=== PATIENT | female | born 1975 | race African-American/Black ===

== ENCOUNTER 2019-12-03 12:18 | Inpatient (IN) | payer OTHER ==
[~2019-12-03] VITALS: Ht 172.7 cm; Wt 80.7 kg
[2019-12-03] MEDS ORDERED: SODIUM CHLORIDE 0.9% 1,000 ML IV ONE ×3 (13:21→18:45)
[2019-12-03] MEDS ORDERED: metroNIDAZOLE 500MG/100ML 100 ML IV ONE (13:30)
[2019-12-03] MEDS ORDERED: methylPREDNISolone SOD SUCC 125 MG/2 ML VL IV ONE (13:30)
[2019-12-03] MEDS ORDERED: PROCHLORPERAZINE EDISYLATE 5 MG/ML 2ML VIAL IV ONE (13:30)
[2019-12-03] MEDS ORDERED: KETOROLAC TROMETH 30 MG/ML 1ML VIAL IV ONE (13:30)
[2019-12-03 14:09] LABS: Basophils # (auto) 0 10 ^3/uL (0-0.2); Basophils % (auto) 0.2 % (0.0-2.0); Eosinophils # (auto) 0 10 ^3/uL (0-0.8); Eosinophils % (auto) 0.1 % (0.0-7.0); Hematocrit 46.1 % (36.0-46.0); Hemoglobin 15.5 g/dL (12.2-16.2); Lymphocytes % (auto) 8.5 % (10.0-50.0); Mean Corpuscular Hemoglobin 29.5 pg (28.0-32.0); Mean Corpuscular Hgb Conc. 33.5 g/dL (32.0-36.0); Mean Corpuscular Volume 87.9 fL (80.0-100.0); Monocytes # (auto) 0.8 10 ^3/uL (0-1.3); Monocytes % (auto) 6.8 % (0.0-12.0); Neutrophils # (auto) 10.4 10 ^3/uL (1.6-8.6); Neutrophils % (auto) 84.4 % (37.0-80.0); Platelet Count (auto) 262 10^3/uL (140-450); Red Blood Cells 5.25 10^6/uL (4.0-5.20); Red Cell Distribution Width 12.5 % (11.8-14.3); White Blood Cell 12.4 10^3/uL (4.4-10.8)
[2019-12-03 14:24] LABS: INR 1.02 (0.9-1.15); Partial Thromboplastin Time 29.3 sec (23.0-31.2)
[2019-12-03 14:25] LABS: Albumin 3.1 g/dL (3.4-5.0); Anion Gap 15 (5-15); Blood Urea Nitrogen 13 mg/dL (7-18); Carbon Dioxide 17 mmol/L (21-32); Chloride 97 mmol/L (98-107); Magnesium 2.4 mg/dL (1.6-2.6); Potassium 3.9 mmol/L (3.5-5.1); Sodium 129 mmol/L (136-145)
[2019-12-03 14:30] LABS: Alanine Aminotransferase 21 U/L (13-56); Alkaline Phosphatase 85 U/L (45-117); Aspartate Aminotransferase 18 U/L (15-37); Bilirubin, Total 0.4 mg/dL (0.2-1.0); GFR African American 58 mL/min; GFR Non-African American 48 mL/min; Total Protein 7.9 g/dL (6.4-8.2)
[2019-12-03 14:35] LABS: Glucose 479 mg/dL (74-106)
[2019-12-03] MEDS ORDERED: DOXYCYCLINE 100MG/250ML 250 ML IV ONE (14:45)
[2019-12-03] MEDS ORDERED: SODIUM CHLORIDE 0.9% 1,000 ML IV SCH (17:17)
[2019-12-03] MEDS ORDERED: ACETAMINOPHEN 500 MG TAB PO PRN (17:30)
[2019-12-03] MEDS ORDERED: ACETAMINOPHEN 325 MG TAB PO PRN ×2 (17:30→18:15)
[2019-12-03] MEDS ORDERED: ALUM & MAG HYDROX-SIMETH LIQ(MAALOX) 30 ML PO PRN (17:30)
[2019-12-03] MEDS ORDERED: NITROGLYCERIN 0.4 MG SL TAB SL PRN (17:30)
[2019-12-03] MEDS ORDERED: HYDROcodone-ACET 5/325MG TAB PO PRN (17:30)
[2019-12-03] MEDS ORDERED: ONDANSETRON HCL 4 MG/2 ML VIAL IV PRN (17:30)
[2019-12-03] MEDS ORDERED: MORPHINE SULF INJ 2 MG/ML SYRINGE 1ML IV PRN ×2 (17:30)
[2019-12-03] MEDS ORDERED: LORazepam 0.5 MG TAB PO PRN (17:30)
[2019-12-03] MEDS ORDERED: INSULIN LANTUS (GLARGINE) 1 /0.01ml (100units/ml) SC ONE (18:45)
[2019-12-03] MEDS ORDERED: FUROSEMIDE 20 MG/2 ML VIAL IV ONE (19:00)
[2019-12-03] MEDS ORDERED: DEXTROSE (50%) 50ML SYRG IV PRN (19:00)
[2019-12-03] MEDS: DOXYCYCLINE 100MG/250ML 250 ML IV SCH (22:13)
[2019-12-03] MEDS: ATORVASTATIN 20 MG TAB PO SCH (22:14)
[2019-12-03] MEDS: FAMOTIDINE 20 MG TAB PO SCH (22:14)
[2019-12-04] MEDS: ACCU-CHEK COMFORT CURVE STRIP VI SCH ×5 (00:13→23:36)
[2019-12-04] MEDS: InsuLIN REG 1unit/0.01ml Soln (100units/ml) SC SCH ×5 (00:18→23:38)
[2019-12-04 03:05] VITALS: BP 123/76
[2019-12-04] MEDS: FUROSEMIDE 20 MG/2 ML VIAL IV SCH ×2 (06:05→18:03)
[2019-12-04 08:20] LABS: Basophils # (auto) 0 10 ^3/uL (0-0.2); Basophils % (auto) 0.2 % (0.0-2.0); Eosinophils # (auto) 0 10 ^3/uL (0-0.8); Hematocrit 42.4 % (36.0-46.0); Hemoglobin 14.6 g/dL (12.2-16.2); Lymphocytes # (auto) 0.9 10 ^3/uL (0.4-5.4); Lymphocytes % (auto) 7.7 % (10.0-50.0); Mean Corpuscular Hemoglobin 30.3 pg (28.0-32.0); Mean Corpuscular Hgb Conc. 34.5 g/dL (32.0-36.0); Mean Corpuscular Volume 87.9 fL (80.0-100.0); Monocytes # (auto) 0.7 10 ^3/uL (0-1.3); Neutrophils # (auto) 9.9 10 ^3/uL (1.6-8.6); Neutrophils % (auto) 86.1 % (37.0-80.0); Platelet Count (auto) 356 10^3/uL (140-450); Red Blood Cells 4.83 10^6/uL (4.0-5.20); Red Cell Distribution Width 12.8 % (11.8-14.3); White Blood Cell 11.5 10^3/uL (4.4-10.8)
[2019-12-04 08:33] LABS: Potassium 4.3 mmol/L (3.5-5.1)
[2019-12-04 08:41] LABS: BUN/Creatinine Ratio 14.9; Bilirubin, Total 0.4 mg/dL (0.2-1.0); Calcium 8.4 mg/dL (8.5-10.1); Total Protein 8.1 g/dL (6.4-8.2)
--- NOTE | 2019-12-04 08:55 | NUR ---
OPENING SHIFT NOTE: PATIENT ADMITTED TO COVID UNIT. ON ROOM AIR SATURATION 95% EVEN AND UNLABORED RESPIRATIONS NOTED. PATIENT A/OX4. 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 UPDATED ON PLAN OF CARE, ISOLATION PRECAUTIONS AND PROTOCOLS. PATIENT ASKING FOR A PEANUT BUTTER AND JELLY SANDWICH, INFORMED PATIENT OF CURRENT BLOOD SUGARS IN THE 400'S AND INSTRUCTED ON DIABETIC EDUCATION. CALL LIGHT PLACED WITHIN REACH, FALL PRECAUTIONS IN PLACE. WILL CONTINUE TO MONITOR.
[2019-12-04 09:00] VITALS: BP 147/94
[2019-12-04] MEDS ORDERED: LISI30TA4 PO (09:52)
[2019-12-04] MEDS ORDERED: ASPI-543 PO (09:52)
[2019-12-04] MEDS: FAMOTIDINE 20 MG TAB PO SCH ×2 (10:56→21:44)
[2019-12-04] MEDS: DOXYCYCLINE 100MG/250ML 250 ML IV SCH (10:56)
[2019-12-04] MEDS: ASPirin 81 mg TAB PO SCH (10:56)
[2019-12-04] MEDS: ZINC SULFATE 220mg CAP or TAB PO SCH (10:56)
[2019-12-04] MEDS: DexAMETHasone SOD PHOS 10MG/1ML VIAL INJ IV SCH (10:56)
[2019-12-04] MEDS: ASCORBIC ACID 1,000 MG TAB PO SCH (10:56)
[2019-12-04] MEDS: ENOXAPARIN SOD 40 MG/0.4 ML SYRINGE SC SCH (10:57)
[2019-12-04] MEDS: CHOLECALCIFEROL (VITD3) 2,000 UNIT CAP PO SCH (10:57)
--- NOTE | 2019-12-04 11:22 | NUR ---
PAGE MADE TO MD GARCIA PER BLOOD GLUCOSE AND INSULIN PROTOCOL.
[2019-12-04] MEDS: INSULIN LANTUS (GLARGINE) 1 /0.01ml (100units/ml) SC SCH ×2 (11:44→21:46)
[2019-12-04 12:24] VITALS: BP 147/94
[2019-12-04 12:59] VITALS: BP 159/99
[2019-12-04] MEDS ORDERED: POTASSIUM EFFERVESENT TAB 25 MEQ PO ONE (14:30)
[2019-12-04] MEDS ORDERED: levoFLOXacin 250 MG TAB PO ONE (14:30)
[2019-12-04] MEDS ORDERED: DEXTROSE (50%) 50ML SYRG IV PRN (14:30)
[2019-12-04] MEDS ORDERED: amLODIPine BESYLATE 5 MG TAB PO ONE (14:45)
[2019-12-04 17:09] VITALS: BP 148/94
--- NOTE | 2019-12-04 18:04 | NUR ---
MD SOTO PAGED: CALLED BACK REGARDING BS [phone]. 1 TIME ORDER FOR LANTUS GIVEN.
[2019-12-04] MEDS ORDERED: INSULIN LANTUS (GLARGINE) 1 /0.01ml (100units/ml) SC ONE (18:15)
--- NOTE | 2019-12-04 18:54 | NUR ---
CARE ENDORSED TO NOC RN.
--- NOTE | 2019-12-04 20:00 | NUR ---
Opening Shift Note Assumed care of patient. Awake, alert and oriented x4. No S/S of distress/SOB or pain. Pt on room air with even and unlabored respirations. Instructed on POC and to call for assist PRN. Bed locked, in lowest position, call light within reach, side rails up x2. Will continue to monitor for changes Q1hr and PRN.
[2019-12-04] MEDS: ATORVASTATIN 20 MG TAB PO SCH (21:44)
--- NOTE | 2019-12-04 22:00 | NUR ---
Hospitalist paged Re: BS [phone], Pt asking for a sleeping pill
--- NOTE | 2019-12-04 22:20 | NUR ---
Call back from hospitalist Told to follow protocol for BS. New orders received for sleeping pill.
[2019-12-04 22:23] VITALS: BP 148/98
[2019-12-04] MEDS: BUDESONIDE (INHALATION) 180 MCG IH IN SCH (22:25)
[2019-12-04] MEDS: ALBUTEROL SULF HFA 90MCG INH 200DOSE IN SCH (22:25)
[2019-12-04] MEDS ORDERED: TEMAZEPAM 15 MG CAP PO ONE (22:30)
[2019-12-05 05:21] VITALS: BP 153/94
[2019-12-05] MEDS: ACCU-CHEK COMFORT CURVE STRIP VI SCH ×2 (06:04→12:07)
[2019-12-05] MEDS: FUROSEMIDE 20 MG/2 ML VIAL IV SCH (06:04)
[2019-12-05] MEDS: InsuLIN REG 1unit/0.01ml Soln (100units/ml) SC SCH ×2 (06:09→12:08)
[2019-12-05] MEDS: BUDESONIDE (INHALATION) 180 MCG IH IN SCH (06:50)
[2019-12-05] MEDS: ALBUTEROL SULF HFA 90MCG INH 200DOSE IN SCH ×2 (06:50→14:08)
[2019-12-05 07:26] LABS: Basophils # (auto) 0.1 10 ^3/uL (0-0.2); Basophils % (auto) 0.3 % (0.0-2.0); Eosinophils # (auto) 0 10 ^3/uL (0-0.8); Hematocrit 44.4 % (36.0-46.0); Mean Corpuscular Hemoglobin 29.3 pg (28.0-32.0); Mean Corpuscular Hgb Conc. 33.9 g/dL (32.0-36.0); Mean Corpuscular Volume 86.6 fL (80.0-100.0); Monocytes # (auto) 1.1 10 ^3/uL (0-1.3); Monocytes % (auto) 5.5 % (0.0-12.0); Neutrophils # (auto) 17.1 10 ^3/uL (1.6-8.6); Neutrophils % (auto) 89.2 % (37.0-80.0); Platelet Count (auto) 405 10^3/uL (140-450); Red Blood Cells 5.13 10^6/uL (4.0-5.20); Red Cell Distribution Width 12.8 % (11.8-14.3); White Blood Cell 19.2 10^3/uL (4.4-10.8)
[2019-12-05 07:39] LABS: Calcium 9.3 mg/dL (8.5-10.1); Potassium 3.9 mmol/L (3.5-5.1)
[2019-12-05 07:43] LABS: BUN/Creatinine Ratio 17.9
[2019-12-05 08:51] VITALS: BP 141/94
[2019-12-05] MEDS ORDERED: amLODIPine BESYLATE 5 MG TAB PO SCH (10:00)
[2019-12-05] MEDS ORDERED: POTASSIUM EFFERVESENT TAB 25 MEQ PO SCH (10:00)
[2019-12-05] MEDS ORDERED: levoFLOXacin 250 MG TAB PO SCH (10:00)
[2019-12-05] MEDS: DexAMETHasone SOD PHOS 10MG/1ML VIAL INJ IV SCH (10:37)
[2019-12-05] MEDS: ZINC SULFATE 220mg CAP or TAB PO SCH (10:37)
[2019-12-05] MEDS: ASPirin 81 mg TAB PO SCH (10:37)
[2019-12-05] MEDS: CHOLECALCIFEROL (VITD3) 2,000 UNIT CAP PO SCH (10:38)
[2019-12-05] MEDS: ASCORBIC ACID 1,000 MG TAB PO SCH (10:38)
[2019-12-05] MEDS: FAMOTIDINE 20 MG TAB PO SCH (10:38)
[2019-12-05] MEDS: ENOXAPARIN SOD 40 MG/0.4 ML SYRINGE SC SCH (10:39)
[2019-12-05] MEDS: INSULIN LANTUS (GLARGINE) 1 /0.01ml (100units/ml) SC SCH (10:59)
[2019-12-05 12:51] VITALS: BP 148/98
[2019-12-05] MEDS ORDERED: LEVO750T8 PO (13:25)
[2019-12-05] MEDS ORDERED: DEX4T PO (13:26)
[2019-12-05] MEDS ORDERED: PANT40TA2 PO (13:28)
[2019-12-05] MEDS ORDERED: ALBUAER3 IN (13:28)
[2019-12-05] MEDS ORDERED: ASCO10003 PO (13:28)
[2019-12-05] MEDS ORDERED: AML5T PO (13:28)
[2019-12-05] MEDS ORDERED: ATOR20TA50 PO (13:28)
[2019-12-05] MEDS ORDERED: CHOL1CAP47 PO (13:28)
[2019-12-05 15:38] VITALS: BP 148/98
[2019-12-05 16:51] VITALS: BP 143/97
== END 2019-12-05 19:15 | disposition home or self-care (01) | DRG 871 ==
LOC: ER 12:18 → TELE 12:19 → TELE-E-ADS 12-04 08:54
PROVIDERS: ADMIT Hospitalist; ATTEND Internal Medicine Nephrology
DX: A41.89 Other specified sepsis (principal); J96.01 Acute respiratory failure with hypoxia; J12.89 Other viral pneumonia; U07.1 COVID-19; E44.0 Moderate protein-calorie malnutrition; N17.9 Acute kidney failure, unspecified; E11.22 Type 2 diabetes mellitus with diabetic chronic kidney disease; E11.65 Type 2 diabetes mellitus with hyperglycemia; K21.9 Gastro-esophageal reflux disease without esophagitis; E66.9 Obesity, unspecified; E78.5 Hyperlipidemia, unspecified; I12.9 Hypertensive chronic kidney disease with stage 1 through stage 4 chronic kidney disease, or unspecified chronic kidney disease; K29.70 Gastritis, unspecified, without bleeding; K52.9 Noninfective gastroenteritis and colitis, unspecified; R65.20 Severe sepsis without septic shock; N18.3 Chronic kidney disease, stage 3 (moderate); Z68.27 Body mass index [BMI] 27.0-27.9, adult
CPT/HCPCS: 36415; 71045; 80048; 80053; 82962; 83036; 83735; 83880; 84484; 85025; 85610; 85730; 87040; 87426; 94640; G0378; J1100; J1815; J1885; J2405; J3490

== ENCOUNTER 2022-08-30 03:09 | Inpatient (IN) | payer OTHER ==
[~2022-08-30] VITALS: Ht 165.1 cm; Wt 87.9 kg
[~2022-08-30 03:09] MED LIST: ALBUAER3 IN; AML5T PO; ASCO10003 PO; ASPI-543 PO; ATOR20TA50 PO; CHOL1CAP47 PO; DEX4T PO; LEVO750T8 PO; LISI30TA4 PO; PANT40TA2 PO
[2022-08-30] MEDS ORDERED: ACETAMINOPHEN 325 MG TAB PO ONE (04:45)
[2022-08-30 04:56] LABS: Basophils # (auto) 0 10 ^3/uL (0-0.2); Basophils % (auto) 0.1 % (0.0-2.0); Eosinophils # (auto) 0 10 ^3/uL (0-0.8); Eosinophils % (auto) 0.1 % (0.0-7.0); Hematocrit 43.3 % (36.0-46.0); Hemoglobin 14.2 g/dL (12.2-16.2); Lymphocytes # (auto) 1.1 10 ^3/uL (0.4-5.4); Lymphocytes % (auto) 5.6 % (10.0-50.0); Mean Corpuscular Hemoglobin 30.4 pg (28.0-32.0); Mean Corpuscular Hgb Conc. 32.8 g/dL (32.0-36.0); Mean Corpuscular Volume 92.9 fL (80.0-100.0); Monocytes # (auto) 1.3 10 ^3/uL (0-1.3); Monocytes % (auto) 6.5 % (0.0-12.0); Neutrophils # (auto) 17.6 10 ^3/uL (1.6-8.6); Neutrophils % (auto) 87.7 % (37.0-80.0); Red Blood Cells 4.65 10^6/uL (4.0-5.20); White Blood Cell 20.1 10^3/uL (4.4-10.8)
[2022-08-30 05:10] LABS: Albumin 3.3 g/dL (3.4-5.0); BUN/Creatinine Ratio 9.8 (10.0-20.0); Calcium 9.2 mg/dL (8.5-10.1); Potassium 3.3 mmol/L (3.5-5.1)
[2022-08-30 05:13] LABS: Bilirubin, Total 0.5 mg/dL (0.2-1.0); Total Protein 7.5 g/dL (6.4-8.2)
[2022-08-30] MEDS ORDERED: levoFLOXacin 750MG 150 ML IV ONE (07:00)
[2022-08-30] MEDS ORDERED: IBUPROFEN 600 MG TAB PO ONE (08:00)
[2022-08-30] MEDS ORDERED: SODIUM CHLORIDE 0.9% 1,000 ML IV ONE (08:00)
[2022-08-30] MEDS ORDERED: POTASSIUM CHL 20 Meq TABLET PO ONE (09:45)
[2022-08-30] MEDS ORDERED: LACTATED RINGER'S 1,000 ML IV ONE (09:45)
[2022-08-30] MEDS ORDERED: DOCUSATE SOD 100 MG CAP PO PRN (10:00)
[2022-08-30] MEDS ORDERED: ACETAMINOPHEN 325 MG TAB PO PRN (10:00)
[2022-08-30] MEDS: ENOXAPARIN SOD 40 MG/0.4 ML SYRINGE SC SCH (10:19)
[2022-08-30] MEDS ORDERED: IOHEXOL 300 MG/ML 100ML BOTTLE IJ ONE (10:56)
[2022-08-30] MEDS ORDERED: GABA300C10 PO (18:07)
[2022-08-30] MEDS: HYDROcodone-ACET 5/325MG TAB PO PRN (19:59)
[2022-08-30 22:00] VITALS: BP 133/80
[2022-08-30] MEDS: MORPHINE SULFATE INJ 2 MG/ml SYRG IV PRN (22:02)
[2022-08-31] MEDS: MORPHINE SULFATE INJ 2 MG/ml SYRG IV PRN ×5 (02:25→18:44)
[2022-08-31] MEDS: ONDANSETRON HCL 4 MG/2 ML VIAL IV PRN ×5 (02:25→18:43)
[2022-08-31 05:00] VITALS: BP 132/81
[2022-08-31 07:12] LABS: Urine Bacteria FEW /hpf (None Seen); Urine Blood Negative /uL (Negative); Urine Specific Gravity 1.027 (1.001-1.035); Urine WBC 1 /hpf (0 - 5)
[2022-08-31 08:00] VITALS: BP 145/89
[2022-08-31] MEDS: ENOXAPARIN SOD 40 MG/0.4 ML SYRINGE SC SCH (08:50)
[2022-08-31] MEDS: AZITHROMYCIN 500MG/ 250ML 250 ML IV SCH (08:50)
[2022-08-31 09:00] VITALS: BP 145/89
[2022-08-31] MEDS: D5W/SOD CHL 0.45%/KCL 20MEQ 1,000 ML IV SCH ×2 (12:14→21:35)
[2022-08-31 12:20] LABS: Basophils # (auto) 0 10 ^3/uL (0-0.2); Basophils % (auto) 0.2 % (0.0-2.0); Eosinophils # (auto) 0 10 ^3/uL (0-0.8); Hematocrit 39.1 % (36.0-46.0); Hemoglobin 12.9 g/dL (12.2-16.2); Lymphocytes # (auto) 1.1 10 ^3/uL (0.4-5.4); Lymphocytes % (auto) 5.2 % (10.0-50.0); Mean Corpuscular Hemoglobin 29.7 pg (28.0-32.0); Mean Corpuscular Volume 89.9 fL (80.0-100.0); Monocytes # (auto) 1.4 10 ^3/uL (0-1.3); Monocytes % (auto) 6.3 % (0.0-12.0); Neutrophils # (auto) 19.4 10 ^3/uL (1.6-8.6); Neutrophils % (auto) 88.3 % (37.0-80.0); Red Blood Cells 4.35 10^6/uL (4.0-5.20); Red Cell Distribution Width 12.8 % (11.8-14.3)
[2022-08-31 13:00] VITALS: BP 128/83
[2022-08-31] MEDS: GABAPENTIN 300 MG CAP PO SCH ×2 (14:00→21:34)
[2022-08-31 14:21] LABS: Anion Gap 8 (5-15); BUN/Creatinine Ratio 8.5 (10.0-20.0); Blood Urea Nitrogen 8 mg/dL (7-18); Calcium 8.5 mg/dL (8.5-10.1); Carbon Dioxide 16 mmol/L (21-32); Chloride 108 mmol/L (98-107); GFR African American 83 mL/min; GFR Non-African American 68 mL/min; Glucose 323 mg/dL (74-106); Potassium 4.5 mmol/L (3.5-5.1); Sodium 132 mmol/L (136-145)
[2022-08-31 17:00] VITALS: BP 143/97
[2022-08-31] MEDS: HYDROcodone-ACET 5/325MG TAB PO PRN (20:07)
[2022-08-31 22:00] VITALS: BP 154/86
[2022-09-01] MEDS: MORPHINE SULFATE INJ 2 MG/ml SYRG IV PRN ×2 (01:34→15:12)
[2022-09-01] MEDS: ONDANSETRON HCL 4 MG/2 ML VIAL IV PRN ×2 (01:35→15:11)
[2022-09-01 05:00] VITALS: BP 157/92
[2022-09-01] MEDS: D5W/SOD CHL 0.45%/KCL 20MEQ 1,000 ML IV SCH ×2 (05:04→11:55)
[2022-09-01] MEDS: GABAPENTIN 300 MG CAP PO SCH ×3 (05:04→21:19)
[2022-09-01] MEDS: HYDROcodone-ACET 5/325MG TAB PO PRN ×3 (05:04→20:00)
[2022-09-01 06:28] LABS: Potassium 4.4 mmol/L (3.5-5.1)
[2022-09-01 06:36] LABS: Albumin 2.9 g/dL (3.4-5.0); BUN/Creatinine Ratio 7.3 (10.0-20.0); Bilirubin, Total 0.3 mg/dL (0.2-1.0); Calcium 8.5 mg/dL (8.5-10.1); Total Protein 7.3 g/dL (6.4-8.2)
[2022-09-01 08:00] VITALS: BP 131/79
[2022-09-01 09:00] VITALS: BP 131/79
[2022-09-01] MEDS ORDERED: DEXTROSE (50%) 50ML SYRG IV PRN (09:30)
[2022-09-01] MEDS: AZITHROMYCIN 500MG/ 250ML 250 ML IV SCH (09:33)
[2022-09-01] MEDS: ENOXAPARIN SOD 40 MG/0.4 ML SYRINGE SC SCH (09:34)
[2022-09-01] MEDS: amLODIPine BESYLATE 5 MG TAB PO SCH (09:35)
[2022-09-01] MEDS: ACCU-CHEK COMFORT CURVE STRIP VI SCH ×3 (11:32→21:40)
[2022-09-01] MEDS: InsuLIN REG 1unit/0.01ml Soln (100units/ml) SC SCH ×2 (11:35→17:06)
[2022-09-01 13:00] VITALS: BP 141/95
[2022-09-01 13:04] LABS: Basophils # (auto) 0.2 10 ^3/uL (0-0.2); Basophils % (auto) 1.1 % (0.0-2.0); Eosinophils # (auto) 0.1 10 ^3/uL (0-0.8); Eosinophils % (auto) 0.7 % (0.0-7.0); Hematocrit 38.2 % (36.0-46.0); Hemoglobin 12.7 g/dL (12.2-16.2); Lymphocytes # (auto) 1.6 10 ^3/uL (0.4-5.4); Lymphocytes % (auto) 10.8 % (10.0-50.0); Mean Corpuscular Hemoglobin 30.2 pg (28.0-32.0); Mean Corpuscular Hgb Conc. 33.3 g/dL (32.0-36.0); Mean Corpuscular Volume 90.7 fL (80.0-100.0); Monocytes % (auto) 6.9 % (0.0-12.0); Neutrophils # (auto) 11.8 10 ^3/uL (1.6-8.6); Neutrophils % (auto) 80.5 % (37.0-80.0); Red Blood Cells 4.22 10^6/uL (4.0-5.20); Red Cell Distribution Width 12.9 % (11.8-14.3); White Blood Cell 14.7 10^3/uL (4.4-10.8)
[2022-09-01] MEDS: SODIUM CHLORIDE 0.9% 1,000 ML IV SCH (15:25)
[2022-09-01 17:00] VITALS: BP 126/58
[2022-09-01 22:00] VITALS: BP 149/90
[2022-09-01] MEDS ORDERED: InsuLIN REG 1unit/0.01ml Soln (100units/ml) SC SCH (22:00)
[2022-09-02] MEDS: HYDROcodone-ACET 5/325MG TAB PO PRN ×2 (04:58→10:52)
[2022-09-02] MEDS: GABAPENTIN 300 MG CAP PO SCH ×2 (04:58→15:02)
[2022-09-02 05:00] VITALS: BP 119/91
[2022-09-02] MEDS: SODIUM CHLORIDE 0.9% 1,000 ML IV SCH (05:01)
[2022-09-02 05:49] LABS: Basophils # (auto) 0.1 10 ^3/uL (0-0.2); Basophils % (auto) 0.7 % (0.0-2.0); Eosinophils # (auto) 0.2 10 ^3/uL (0-0.8); Eosinophils % (auto) 1.6 % (0.0-7.0); Hematocrit 40.2 % (36.0-46.0); Hemoglobin 13.6 g/dL (12.2-16.2); Lymphocytes # (auto) 2.4 10 ^3/uL (0.4-5.4); Lymphocytes % (auto) 17.5 % (10.0-50.0); Mean Corpuscular Hemoglobin 30.1 pg (28.0-32.0); Mean Corpuscular Hgb Conc. 33.9 g/dL (32.0-36.0); Mean Corpuscular Volume 88.8 fL (80.0-100.0); Monocytes % (auto) 7.3 % (0.0-12.0); Neutrophils # (auto) 9.9 10 ^3/uL (1.6-8.6); Neutrophils % (auto) 72.9 % (37.0-80.0); Nucleated Red Blood Cells % 0.1 %; Red Blood Cells 4.52 10^6/uL (4.0-5.20); Red Cell Distribution Width 12.8 % (11.8-14.3); White Blood Cell 13.6 10^3/uL (4.4-10.8)
[2022-09-02 06:08] LABS: BUN/Creatinine Ratio 10.6 (10.0-20.0); Potassium 3.7 mmol/L (3.5-5.1)
[2022-09-02] MEDS: ACCU-CHEK COMFORT CURVE STRIP VI SCH ×2 (06:46→11:30)
[2022-09-02] MEDS: InsuLIN REG 1unit/0.01ml Soln (100units/ml) SC SCH ×2 (06:46→12:34)
[2022-09-02 09:00] VITALS: BP 116/83
[2022-09-02] MEDS: AZITHROMYCIN 500MG/ 250ML 250 ML IV SCH (09:38)
[2022-09-02] MEDS: ENOXAPARIN SOD 40 MG/0.4 ML SYRINGE SC SCH (09:38)
[2022-09-02] MEDS: amLODIPine BESYLATE 5 MG TAB PO SCH (09:39)
[2022-09-02 13:00] VITALS: BP 128/79
[2022-09-02] MEDS ORDERED: AZIT250T8 PO (13:23)
== END 2022-09-02 16:24 | disposition home or self-care (01) | DRG 720 ==
LOC: ER 03:09 → OVERFLOW 09:54 → CENTRAL 18:11
PROVIDERS: ADMIT Internal Medicine; ATTEND Nurse Practitioner Acute Care
DX: A41.9 Sepsis, unspecified organism (principal); E44.1 Mild protein-calorie malnutrition; E11.9 Type 2 diabetes mellitus without complications; E66.9 Obesity, unspecified; J02.0 Streptococcal pharyngitis; I10 Essential (primary) hypertension; Z20.822 Contact with and (suspected) exposure to COVID-19; Z88.0 Allergy status to penicillin; Z68.32 Body mass index [BMI] 32.0-32.9, adult
CPT/HCPCS: 36415; 36600; 70487; 71045; 74176; 80048; 80053; 81001; 82805; 82962; 83605; 84484; 84702; 85025; 87040; 87070; 87086; 87426; 87804; 87880; 93005; 96361; 96365; 96366; 96372; G0378; J1815; J1956; J2405

== ENCOUNTER 2024-08-03 16:57 | Emergency (ER) | payer OTHER ==
[~2024-08-03] VITALS: Ht 165.1 cm; Wt 82.1 kg
[~2024-08-03 16:57] MED LIST changes: +AZIT-185 PO; +GABA-1250 PO; -LISI30TA4 PO; +LISI30TA8 PO
--- NOTE | 2024-08-03 17:16 | ED.PDOC ---
HPI (NEURO) HPI Comments 49 y/o F, with PMHx of HTN and DM presents to the ED for CC of generalized weakness. Patient states, she has been experiencing generalized weakness with associated symptoms of nausea, vomiting, and headache x this morning (08/03/24). Patient endorses, associated symptoms of fever which she tried to break with Tylenol; provided no relief. No other associated symptoms, modifiers, recent injuries or sick contacts present at this time. Patient was mildly tachycardic at arrival. Time Seen by MD: 17:10 Primary Care Provider: MD AGARWAL Reviewed Notes: Nurses Notes, Medications, Allergies Information Source: Patient Mode of Arrival: Ambulatory Severity: Moderate Headache Severity: None Timing: Hours Duration: Since onset Prehospital treatment: None Headache Location: Generalized Weakness Location: Generalized Onset: At rest Circumstances: Spontaneous Symptoms: Weakness History of: None Modifying factors: Nothing Associated Signs and Symptoms: Nausea, Vomiting Past Medical History PAST MEDICAL HISTORY: DM, HTN Surgical History: Denies all surgeries WATER SOFTENER SERVICE SUPERVISOR History: No Pertinent WATER SOFTENER SERVICE SUPERVISOR History Social History Smoker: Non-Smoker Alcohol: Denies ETOH Use Drugs: Denies Drug Use Lives In: Home Constitutional: reports: weakness; denies: chills, diaphoresis, fatigue, fever, malaise, sweats, others EENTM: denies: blurred vision, double vision, ear bleeding, ear discharge, ear drainage, ear pain, ear ringing, eye pain, eye redness, hearing loss, mouth pain, mouth swelling, nasal discharge, nose bleeding, nose congestion, nose pain, photophobia, tearing, throat pain, throat swelling, voice changes, others Respiratory: denies: cough, hemoptysis, orthopnea, SOB at rest, shortness of breath, SOB with excertion, stridor, wheezing, others Cardiovascular: denies: chest pain, dizzy spells, diaphoresis, Dyspnea on exertion, edema, irregular heart beat, left arm pain, lightheadedness, palpitations, PND, syncope, others Gastrointestinal: reports: abdominal pain, nausea, vomiting; denies: abdomen distended, blood streaked bowels, constipated, diarrhea, dysphagia, difficulty swallowing, hematemesis, melena, poor appetite, poor fluid intake, rectal bleeding, rectal pain, others Genitourinary: denies: abnormal vagina bleeding, burning, dyspareunia, dysuria, flank pain, frequency, hematuria, incontinence, pain, , vagina discharge, urgency, others Neurological: reports: headache; denies: dizziness, fainting, left sided numbness, left sided weakness, numbness, paresthesia, pre-existing deficit, right sided numbness, right sided weakness, seizure, speech problems, tingling, tremors, weakness, others Musculoskeletal: denies: back pain, gout, joint pain, joint swelling, muscle p ain, muscle stiffness, neck pain, others Integumetry: denies: bruises, change in color, change in hair/nails, dryness, laceration, lesions, lumps, rash, wounds, others Allergic/Immunocompromised: denies: Difficulty Healing, Frequent Infections, Hives, Itching, others Hematologic/Lymphatic: denies: anemia, blood clots, easy bleeding, easy bruising, swollen glands, others Endocrine: denies: excessive hunger, excessive sweating, excessive thirst, excessive urination, flushing, intolerance to cold, intolerance to heat, unexplained weight gain, unexplained weight loss, others Psychiatric: denies: anxiety, bipolar disorder, depression, hopeless, panic disorder, schizophrenia, sleepless, suicidal, others All Other Systems: Reviewed and Negative Physical Exam General Appearance: Moderate Distress (Patient presents as a mildly to moderate toxic 49-year-old female), Normal HEENT: Normal ENT Inspection, Pharynx Normal, TMs Normal Neck: Full Range of Motion, Non-Tender, Normal, Normal Inspection Respiratory: Chest Non-Tender, Lungs Clear, No Accessory Muscle Use, No Respiratory Distress, Normal Breath Sounds Cardiovascular: No Edema, No JVD, No Murmur, No Gallop, Normal Peripheral Pulses, Regular Rate/Rhythm Breast Exam: Deferred Gastrointestinal: Non Tender, No Pulsatile Mass, Normal Bowel Sounds, Soft, Other ( unremarkable evaluation of the abdomen.) Genitalia: Deferred Pelvic: Deferred Rectal: Deferred Extremities: No calf tenderness, Normal capillary refill, Normal inspection, Normal range of motion, Non-tender, No pedal edema Neurologic: Alert, chemistry technician II-XII nml as Tested, No Motor Deficits, Normal Affect, Normal Mood, No Sensory Deficits Cerebellar Function: Normal Reflexes: Normal Skin: Dry, Normal Color, Warm Lymphatic: No Adenopathy Was a procedure done? Was a procedure done?: No Differential Diagnosis (SZ) General Weakness: Other ( Viral gastroenteritis, electrolyte abnormality, sepsis, UTI, acute coronary event) X-Ray, Labs, Meds, VS Vital Signs Date Time Temp Pulse Resp B/P (MAP) Pulse Ox O2 Delivery O2 Flow Rate FiO2 08/03/24 20:16 107 19 97 Room Air 08/03/24 20:16 99.4 107 19 116/70 (85) 97 99.4 08/03/24 17:16 108 08/03/24 17:13 99.4 117 19 112/86 (95) 96 99.4 Lab Test 08/03/24 20:10 08/03/24 17:28 08/03/24 17:12 Range/Units Influenza Type A Antigen Negative Negative Influenza Type B Antigen Negative Negative SARS-CoV-2 Antigen (Rapid) Negative NEGATIVE White Blood Count 9.9 4.4-10.8 10^3/uL Red Blood Count 5.11 4.0-5.20 10^6/uL Hemoglobin 15.6 12.2-16.2 g/dL Hematocrit 45.2 36.0-46.0 % Mean Corpuscular Volume 88.4 80.0-100.0 fL Mean Corpuscular Hemoglobin 30.5 28.0-32.0 pg Mean Corpuscular Hemoglobin Concent 34.6 32.0-36.0 g/dL Red Cell Distribution Width 12.8 11.8-14.3 % Platelet Count 182 140-450 10^3/uL Mean Platelet Volume 9.9 6.9-10.8 fL Neutrophils (%) (Auto) 85.3 H 37.0-80.0 % Lymphocytes (%) (Auto) 9.2 L 10.0-50.0 % Monocytes (%) (Auto) 5.4 0.0-12.0 % Eosinophils (%) (Auto) 0.0 0.0-7.0 % Basophils (%) (Auto) 0.1 0.0-2.0 % Neutrophils # (Auto) 8.5 1.6-8.6 10 ^3/uL Lymphocytes # (Auto) 0.9 0.4-5.4 10 ^3/uL Monocytes # (Auto) 0.5 0-1.3 10 ^3/uL Eosinophils # (Auto) 0 0-0.8 10 ^3/uL Basophils # (Auto) 0 0-0.2 10 ^3/uL Nucleated Red Blood Cells 0.0 % Sodium Level 135 L 136-145 mmol/L Potassium Level 3.8 3.5-5.1 mmol/L Chloride Level 105 98-107 mmol/L Carbon Dioxide Level 20 20-31 mmol/L Anion Gap 10 5-15 Blood Urea Nitrogen 11 9-23 mg/dL Creatinine 1.07 H 0.550-1.02 mg/dL Glomerular Filtration Rate Calc 64 >90 mL/min BUN/Creatinine Ratio 10.3 10.0-20.0 Serum Glucose 225 H 74-106 mg/dL Calcium Level 9.0 8.7-10.4 mg/dL Total Bilirubin 0.4 0.2-1.0 mg/dL Aspartate Amino Transferase (AST) 13 13-40 U/L Alanine Aminotransferase (ALT) 17 7-40 U/L Alkaline Phosphatase 75 46-116 U/L Total Protein 6.8 5.7-8.2 g/dL Albumin 4.3 3.2-4.8 g/dL Lipase 26 12-53 U/L Urine Color Light-yellow Yellow Urine Clarity Clear Clear Urine pH 5.5 5.0-9.0 Urine Specific [place] 1.009 1.001-1.035 Urine Protein Negative Negative Urine Ketones 1+ H Negative Urine Blood Trace H Negative /uL Urine Nitrite Negative Negative Urine Bilirubin Negative Negative Urine Urobilinogen 2 H Negative mg/dL Urine Leukocyte Esterase 1+ Negative /uL Urine RBC 1 0 - 4 /hpf Urine Microscopic WBC 4 0-5 /HPF Urine Squamous Epithelial Cells Few <5 /hpf Urine Bacteria Few H None Seen /hpf Urine Glucose Trace Normal mg/dL Urine Test Negative Negative Current Medications Medications (Trade) Dose Ordered Sig/Sandro Route Start Time Stop Time Status Last Admin Ondansetron HCl (Zofran Po) 4 mg ONCE ONCE PO 08/03/24 17:15 08/03/24 17:16 DC 08/03/24 20:16 Dicyclomine HCl (Bentyl Injection) 20 mg ONCE ONCE IM 08/03/24 17:15 08/03/24 17:16 DC 08/03/24 20:15 Acetaminophen/ Hydrocodone Bitart ([place] 5/325MG Tab) 1 tab ONCE ONCE PO 08/03/24 20:30 08/03/24 20:31 DC 08/03/24 20:28 X-Ray, Labs, Meds, VS Comment All studies performed the ED were evaluated by me personally. Serum laboratories revealed a mild hyperglycemic state. EKG was remarkable for a sinus tachycardia with a rate of 108. 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 NV interval 185 and QT interval of 333. Relatively unremarkable EKG. Urinalysis confirmed a UTI. Patient was given her 1st dose of antibiotics prior to discharge. Advised patient utilize antibiotics as directed until completion as well as additional medication as needed Time of 1ST Reevaluation: 22:38 Reevaluation 1ST: Improved Consultation: PCP Patient Education/Counseling: Diagnosis, Treatment Family Education/Counseling: Diagnosis, Treatment, No Family Present Departure 1 Departure Time of Disposition: 22:39 Impression: Primary Impression: Urinary tract infection Disposition: HOME / SELF CARE / HOMELESS Condition: Stable Additional Instructions: Advised patient utilize antibiotics as directed until completion as well as additional medication as needed. Patient should practice good hydration and healthy nutrition throughout. e-Prescriptions Dicyclomine Hcl (BENTYL CAPSULE) 10 Mg Cp 1 CAP PO Q6HPRN, #20 CAP 0 Refills Prov: ANDRÉS IRENE PAC 08/03/24 Ondansetron Odt 4MG Tab (ZOFRAN PO) 4 Mg Tb 4 MG PO Q6HP PRN, #15 TAB ODT TAB-DISSOLVE IN MOUTH, THEN SWALLOW Prov: ANDRÉS IRENE PAC 08/03/24 Nitrofurantoin Monohydrate Mac (Macrobid) 100 Mg Cap 100 MG PO BID for 7 Days, #14 CAP Prov: ANDRÉS IRENE 08/03/24 Discharged With: Self, Friend Critical Care Note Critical Care Time?: No Stability Stability form required: No Heart Score Heart Score: Heart Score Response (Comments) Value History Slightly Suspicious 0 EKG Normal 0 Age 45-64 1 Risk Factors No known risk factors 0 Troponin N/A 0 Total 1 I personally scribed for ANDRÉS IRENE PAC ([email or web address]) on 08/03/24 at 17:16. Electronically submitted by Gem Galeano [email or web address]). ANDRÉS IRENE PAC Aug 03, 2024 17:16
[2024-08-03 17:48] LABS: Basophils # (auto) 0 10 ^3/uL (0-0.2); Basophils % (auto) 0.1 % (0.0-2.0); Eosinophils # (auto) 0 10 ^3/uL (0-0.8); Hematocrit 45.2 % (36.0-46.0); Hemoglobin 15.6 g/dL (12.2-16.2); Lymphocytes # (auto) 0.9 10 ^3/uL (0.4-5.4); Lymphocytes % (auto) 9.2 % (10.0-50.0); Mean Corpuscular Hemoglobin 30.5 pg (28.0-32.0); Mean Corpuscular Hgb Conc. 34.6 g/dL (32.0-36.0); Mean Corpuscular Volume 88.4 fL (80.0-100.0); Monocytes # (auto) 0.5 10 ^3/uL (0-1.3); Monocytes % (auto) 5.4 % (0.0-12.0); Neutrophils # (auto) 8.5 10 ^3/uL (1.6-8.6); Neutrophils % (auto) 85.3 % (37.0-80.0); Platelet Count (auto) 182 10^3/uL (140-450); Red Blood Cells 5.11 10^6/uL (4.0-5.20); Red Cell Distribution Width 12.8 % (11.8-14.3); White Blood Cell 9.9 10^3/uL (4.4-10.8)
[2024-08-03 17:52] LABS: Urine Bacteria FEW /hpf (None Seen); Urine Blood TRACE /uL (Negative); Urine Clarity Clear (Clear); Urine Color Light-Yellow (Yellow); Urine Protein, UAD Negative (Negative); Urine Specific Gravity 1.009 (1.001-1.035); Urine Squamous Epithelial Cell FEW /hpf (<5); Urine Urobilinogen 2 mg/dL (Negative); Urine WBC 4 /HPF (0-5); Urine pH 5.5 (5.0-9.0)
[2024-08-03 18:01] LABS: Alanine Aminotransferase 17 U/L (7-40); Albumin 4.3 g/dL (3.2-4.8); Alkaline Phosphatase 75 U/L (46-116); Anion Gap 10 (5-15); Aspartate Aminotransferase 13 U/L (13-40); BUN/Creatinine Ratio 10.3 (10.0-20.0); Blood Urea Nitrogen 11 mg/dL (9-23); Chloride 105 mmol/L (98-107); Lipase 26 U/L (12-53); Potassium 3.8 mmol/L (3.5-5.1); Total Protein 6.8 g/dL (5.7-8.2)
[2024-08-03 18:02] LABS: Bilirubin, Total 0.4 mg/dL (0.2-1.0)
[2024-08-03 18:18] LABS: Carbon Dioxide 20 mmol/L (20-31); Glucose 225 mg/dL (74-106); Sodium 135 mmol/L (136-145)
--- NOTE | 2024-08-03 18:59 | ECG ---
[facility] Test Date: 2024-08-03 Test Time: 17:13:53 Pat Name: KELSEA NEGRO Department: ED Room: Gender: F Instructional Technology Specialist: TOMÁS : 1975 Requested By: ANDRÉS IRENE Order Number: [id number] Reading MD: Jorje Ugarte Measurements Intervals [place] Rate: 108 P: 51 MA: 185 QRS: 20 QRSD: 69 T: 29 QT: 333 QTc: 447 Interpretive Statements Sinus tachycardia Anterior infarct, old Electronically Signed On 08-04-2024 13:45:51 PDT by Jorje Ugarte Please click the below link to view image of tracing.
[2024-08-03] MEDS: DICYCLOMINE HCL (10MG/ML) 2 ML AMPULE IM ONE (20:15)
[2024-08-03] MEDS: ONDANSETRON ODT 4 MG TAB PO ONE (20:16)
[2024-08-03] MEDS: HYDROcodone-ACET 5/325MG TAB PO ONE (20:28)
[2024-08-03 21:58] LABS: COVID19 ANTIGEN SOFIA FIA NEGATIVE (NEGATIVE)
[2024-08-03 21:59] LABS: Rapid Influenza A Negative (Negative); Rapid Influenza B Negative (Negative)
[2024-08-03] MEDS ORDERED: NITR-87 PO (22:41)
[2024-08-03] MEDS ORDERED: DICY10CA PO (22:41)
[2024-08-03] MEDS ORDERED: ZOFR4T PO (22:41)
[2024-08-03] MEDS: NITROFURANTOIN 100 mg CAP PO ONE (22:59)
[2024-08-03 23:04] VITALS: BP 105/69; PULSE 98; RESP 17; TEMP 99.8; O2SAT 96
== END 2024-08-03 23:05 | disposition home or self-care (01) ==
LOC: ER 16:57
DX: N39.0 Urinary tract infection, site not specified (principal); E11.9 Type 2 diabetes mellitus without complications; I10 Essential (primary) hypertension; Z20.822 Contact with and (suspected) exposure to COVID-19
CPT/HCPCS: 36415; 80053; 81001; 81025; 83690; 85025; 87426; 87804; 93005; 96372; 99284; J0500; Q0162

== ENCOUNTER 2024-08-05 06:06 | Inpatient (IN) | payer OTHER ==
[~2024-08-05] VITALS: Ht 165.1 cm; Wt 54.0 kg
[~2024-08-05 06:06] MED LIST changes: +DICY10CA PO; +NITR-87 PO; +ZOFR4T PO
[2024-08-05 06:57] LABS: Basophils # (auto) 0 10 ^3/uL (0-0.2); Basophils % (auto) 0.2 % (0.0-2.0); Eosinophils # (auto) 0 10 ^3/uL (0-0.8); Eosinophils % (auto) 0.1 % (0.0-7.0); Hematocrit 42.8 % (36.0-46.0); Hemoglobin 14.7 g/dL (12.2-16.2); Lymphocytes # (auto) 1.1 10 ^3/uL (0.4-5.4); Mean Corpuscular Hemoglobin 30.1 pg (28.0-32.0); Mean Corpuscular Hgb Conc. 34.3 g/dL (32.0-36.0); Mean Corpuscular Volume 87.6 fL (80.0-100.0); Monocytes # (auto) 1.2 10 ^3/uL (0-1.3); Monocytes % (auto) 9.4 % (0.0-12.0); Neutrophils # (auto) 10.1 10 ^3/uL (1.6-8.6); Neutrophils % (auto) 81.3 % (37.0-80.0); Platelet Count (auto) 153 10^3/uL (140-450); Red Blood Cells 4.89 10^6/uL (4.0-5.20); Red Cell Distribution Width 12.7 % (11.8-14.3); White Blood Cell 12.5 10^3/uL (4.4-10.8)
[2024-08-05 07:04] LABS: Chloride 102 mmol/L (98-107); Potassium 3.9 mmol/L (3.5-5.1)
[2024-08-05 07:05] LABS: Anion Gap 11 (5-15); Carbon Dioxide 20 mmol/L (20-31)
[2024-08-05 07:06] LABS: Calcium 9.4 mg/dL (8.7-10.4)
[2024-08-05 07:10] LABS: BUN/Creatinine Ratio 13.4 (10.0-20.0); Blood Urea Nitrogen 13 mg/dL (9-23)
--- NOTE | 2024-08-05 07:11 | ED.PDOC ---
GI ASSESSMENT HPI Comments 49 y/o F, with PMHx of DM and HTN presents to the ED for CC of abdominal pain. Patient states, that she has been experiencing epigastric abdominal pain with associated symptoms of nausea and vomiting x3days. Patient relays, that she was seen at [facility] on (08/03/24) and was departed with no pain medications; yet symptoms have not improved. Patient endorses, she was diagnosed with a UTI and was prescribed antibiotics and Zofran. No other associated symptoms, modifiers, recent injuries or sick contacts present at this time. Chief Complaint: Abdominal Pain Time Seen by MD: 06:35 Primary Care Provider: MD AGARWAL Reviewed Notes: Nurses Notes, Medications, Allergies Allergies: Coded Allergies: Penicillins (Verified Allergy, Unknown, 08/31/22) Interview date: 08-31-2022 Per patient: - Developed hives when taking PCNs by mouth when she was a kid - Took Amoxicillin and Keflex in 2010 and well tolerated, no allergic reaction. Home Meds Active Scripts Dicyclomine Hcl (BENTYL CAPSULE) 10 Mg Cp, 1 CAP PO Q6HPRN, #20 CAP 0 Refills Prov:ANDRÉS IRENE PAC 08/03/24 Azithromycin (ZITHROMAX TABLET) 250 Mg Tb, 500 MG PO DAILY for 3 Days, #6 TAB Prov:KIMBERLYN RUDD EQUAL OPPORTUNITY DIRECTOR 09/02/22 Pantoprazole Sodium Sesquihydr (Protonix) 40 Mg Tab, 40 MG PO DAILY for 30 Days, #30 TAB Prov:GRECIA GARCIA MD 12/05/19 Cholecalciferol (Vitamin D3 Super Strength) 2,000 Unit Cap, 2 TAB PO DAILY for 30 Days, #60 CAP Prov:GRECIA GARCIA MD 12/05/19 Ascorbic Acid (Gnp Vitamin C W/Nette Hips) 1,000 Mg Tab, 1000 MG PO DAILY for 10 Days, #10 TAB Prov:GRECIA GARCIA MD 12/05/19 Amlodipine Besylate (NORVASC TABLET) 5 Mg Tb, 5 MG PO DAILY for 30 Days, #30 TAB Prov:GRECIA GARCIA MD 12/05/19 Dexamethasone (Decadron) 4 Mg Tb, 6 MG PO DAILY for 10 Days, #10 TAB Prov:GRECIA GARCIA MD 12/05/19 Levofloxacin (Levaquin 750 mg) 750 Mg Tab, 1 TAB PO DAILY for 5 Days, #5 TAB 0 Refills Prov:GRECIA GARCIA MD 12/05/19 Reported Medications Gabapentin (Gabapentin) 300 Mg Cap, PO 08/30/22 Lisinopril (Lisinopril) 30 Mg Tab, 30 MG PO DAILY for 30 Days, MG 12/04/19 Information Source: Patient Mode of Arrival: Ambulatory Timing: Days Duration: Since onset Prehospital treatment: None Quality: None Vomitus: Watery Stool: Normal Severity: Moderate Recent: None Recent Hx of: None Pain Location: Epigastric Modifying Factors: Nothing Associated sign and symptoms: Nausea, Vomiting, Abdominal Pain Past Medical History PAST MEDICAL HISTORY: DM, HTN Surgical History: Denies all surgeries QUALITY ANALYST History: No Pertinent QUALITY ANALYST History Social History Smoker: Non-Smoker Alcohol: Denies ETOH Use Drugs: Denies Drug Use Lives In: Home Constitutional: denies: chills, diaphoresis, fatigue, fever, malaise, sweats, weakness, others EENTM: denies: blurred vision, double vision, ear bleeding, ear discharge, ear drainage, ear pain, ear ringing, eye pain, eye redness, hearing loss, mouth pain, mouth swelling, nasal discharge, nose bleeding, nose congestion, nose pain, photophobia, tearing, throat pain, throat swelling, voice changes, others Respiratory: denies: cough, hemoptysis, orthopnea, SOB at rest, shortness of breath, SOB with excertion, stridor, wheezing, others Cardiovascular: denies: chest pain, dizzy spells, diaphoresis, Dyspnea on exertion, edema, irregular heart beat, left arm pain, lightheadedness, palpitations, PND, syncope, others Gastrointestinal: reports: abdominal pain, nausea, vomiting; denies: abdomen distended, blood streaked bowels, constipated, diarrhea, dysphagia, difficulty swallowing, hematemesis, melena, poor appetite, poor fluid intake, rectal bleeding, rectal pain, others Genitourinary: denies: abnormal vagina bleeding, burning, dyspareunia, dysuria, flank pain, frequency, hematuria, incontinence, pain, , vagina discharge, urgency, others Neurological: denies: dizziness, fainting, headache, left sided numbness, left sided weakness, numbness, paresthesia, pre-existing deficit, right sided numbness, right sided weakness, seizure, speech problems, tingling, tremors, weakness, others Musculoskeletal: denies: back pain, gout, joint pain, joint swelling, muscle pain, muscle stiffness, neck pain, others Integumetry: denies: bruises, change in color, change in hair/nails, dryness, laceration, lesions, lumps, rash, wounds, others Allergic/Immunocompromised: denies: Difficulty Healing, Frequent Infections, Hives, Itching, others Hematologic/Lymphatic: denies: anemia, blood clots, easy bleeding, easy bruising, swollen glands, others Endocrine: denies: excessive hunger, excessive sweating, excessive thirst, excessive urination, flushing, intolerance to cold, intolerance to heat, unexplained weight gain, unexplained weight loss, others Psychiatric: denies: anxiety, bipolar disorder, depression, hopeless, panic disorder, schizophrenia, sleepless, suicidal, others All Other Systems: Reviewed and Negative Physical Exam General Appearance: Moderate Distress HEENT: Normal ENT Inspection, Pharynx Normal, TMs Normal Neck: Full Range of Motion, Non-Tender, Normal, Normal Inspection Respiratory: Chest Non-Tender, Lungs Clear, No Accessory Muscle Use, No Respiratory Distress, Normal Breath Sounds Cardiovascular: No Edema, No JVD, No Murmur, No Gallop, Normal Peripheral Pulses, Regular Rate/Rhythm Breast Exam: Deferred Gastrointestinal: No Organomegaly, Non Tender, No Pulsatile Mass, Normal Bowel Sounds, Soft Genitalia: Deferred Pelvic: Deferred Rectal: Deferred Extremities: No calf tenderness, Normal capillary refill, Normal inspection, Normal range of motion, Non-tender, No pedal edema Musculoskeletal : Apperance: Normal Neurologic: Alert, process helper II-XII nml as Tested, No Motor Deficits, Normal Affect, Normal Mood, No Sensory Deficits Cerebellar Function: Normal Reflexes: Normal Skin: Dry, Normal Color, Warm Peripheral Pulses: 3+ Radial (R), 3+ Radial (L) Lymphatic: No Adenopathy Was a procedure done? Was a procedure done?: No GI differential Dx Differential Diagnosis: Constipation, Diverticular disease, Esophagitis, Gas tritis/PUD, Gastroenteritis, Electrolyte Imbalance, Food Poisoning, Bacterial, Viral X-Ray, Labs, Meds, VS Vital Signs Date Time Temp Pulse Resp B/P (MAP) Pulse Ox O2 Delivery O2 Flow Rate FiO2 08/05/24 12:30 86 17 116/85 (95) 98 08/05/24 10:30 98.5 90 17 128/86 (100) 96 98.5 08/05/24 08:57 88 18 141/89 08/05/24 08:11 85 18 119/85 08/05/24 08:00 85 17 Room Air* 0 21 08/05/24 07:33 92 18 98 Room Air 08/05/24 07:33 98.8 92 18 132/81 (98) 98 98.8 08/05/24 07:04 98.0 97 20 109/76 (87) 99 98.0 Lab Test 08/05/24 07:17 08/05/24 06:55 08/05/24 06:43 Range/Units Lactic Acid Level 1.7 0.4-2.0 mmol/L Urine Color Yellow Yellow Urine Clarity Clear Clear Urine pH 6.0 5.0-9.0 Urine Specific [place] 1.039 H 1.001-1.035 Urine Protein Trace H Negative Urine Ketones 4+ H Negative Urine Blood Trace H Negative /uL Urine Nitrite Negative Negative Urine Bilirubin Negative Negative Urine Urobilinogen 12 H Negative mg/dL Urine Leukocyte Esterase Negative Negative /uL Urine RBC 1 0 - 4 /hpf Urine Microscopic WBC 6 H 0-5 /HPF Urine Squamous Epithelial Cells Mod <5 /hpf Urine Bacteria Few H None Seen /hpf Urine Glucose 4+ H Normal mg/dL White Blood Count 12.5 #H 4.4-10.8 10^3/uL Red Blood Count 4.89 4.0-5.20 10^6/uL Hemoglobin 14.7 12.2-16.2 g/dL Hematocrit 42.8 36.0-46.0 % Mean Corpuscular Volume 87.6 80.0-100.0 fL Mean Corpuscular Hemoglobin 30.1 28.0-32.0 pg Mean Corpuscular Hemoglobin Concent 34.3 32.0-36.0 g/dL Red Cell Distribution Width 12.7 11.8-14.3 % Platelet Count 153 140-450 10^3/uL Mean Platelet Volume 10.0 6.9-10.8 fL Neutrophils (%) (Auto) 81.3 H 37.0-80.0 % Lymphocytes (%) (Auto) 9.0 L 10.0-50.0 % Monocytes (%) (Auto) 9.4 0.0-12.0 % Eosinophils (%) (Auto) 0.1 0.0-7.0 % Basophils (%) (Auto) 0.2 0.0-2.0 % Neutrophils # (Auto) 10.1 H 1.6-8.6 10 ^3/uL Lymphocytes # (Auto) 1.1 0.4-5.4 10 ^3/uL Monocytes # (Auto) 1.2 0-1.3 10 ^3/uL Eosinophils # (Auto) 0 0-0.8 10 ^3/uL Basophils # (Auto) 0 0-0.2 10 ^3/uL Nucleated Red Blood Cells 0.0 % Sodium Level 133 L 136-145 mmol/L Potassium Level 3.9 3.5-5.1 mmol/L Chloride Level 102 98-107 mmol/L Carbon Dioxide Level 20 20-31 mmol/L Anion Gap 11 5-15 Blood Urea Nitrogen 13 9-23 mg/dL Creatinine 0.97 0.550-1.02 mg/dL Glomerular Filtration Rate Calc 73 >90 mL/min BUN/Creatinine Ratio 13.4 10.0-20.0 Serum Glucose 321 H 74-106 mg/dL Hemoglobin A1c 10.7 H <5.7 % A1C Calcium Level 9.4 8.7-10.4 mg/dL Current Medications Medications (Trade) Dose Ordered Sig/Sandro Route Start Time Stop Time Status Last Admin Morphine Sulfate 4 mg ONCE ONCE IV 08/05/24 07:15 08/05/24 07:16 DC 08/05/24 08:11 Ondansetron HCl (Zofran) 4 mg ONCE ONCE IV 08/05/24 07:15 08/05/24 07:16 DC 08/05/24 08:11 Sodium Chloride 1,000 ml @ 1,000 mls/hr Q1H ONCE IV 08/05/24 07:15 08/05/24 08:14 DC 08/05/24 08:11 Levofloxacin/ Dextrose 100 ml @ 100 mls/hr ONCE ONCE IV 08/05/24 07:15 08/05/24 08:14 DC 08/05/24 08:11 Metronidazole 100 ml @ 100 mls/hr ONCE ONCE IV 08/05/24 07:15 08/05/24 08:14 DC 08/05/24 08:52 Acetaminophen/ Hydrocodone Bitart ([place] 5/325MG Tab) 1 tab ONCE ONCE PO 08/05/24 10:30 08/05/24 10:31 DC 08/05/24 10:34 Patient alert. Complaining of abdominal pain. Was seen here for the same symptom few days ago at this hospital. Vitals stable. No sign of sepsis. WBC elevated. Establish intravenous access. Was given fluids. Was given Levaquin. Possible gastritis insert pain mostly in the epigastric region. Was given Flagyl. Reviewed her previous visit. Explained to the patient. Continue monitoring. Time of 1ST Reevaluation: 17:20 Reevaluation 1ST: Unchanged Patient Education/Counseling: Diagnosis, Treatment Family Education/Counseling: No Family Present Departure 1 Departure Time of Disposition: 07:14 Impression: Primary Impression: Sepsis due to urinary tract infection Additional Impression: Gastritis Qualified Codes: K29.00 - Acute gastritis without bleeding Disposition: ADMITTED INPATIENT Admit to: Med Surg Condition: Guarded Critical Care Note Critical Care Time?: No Stability Stability form required: No Heart Score Heart Score: Heart Score Response (Comments) Value History N/A 0 EKG N/A 0 Age N/A 0 Risk Factors N/A 0 Troponin N/A 0 Total 0 I personally scribed for OLAF BARRON MD ([email or web address]) on 08/05/24 at 07:11. Electronically submitted by Gem Galeano [email or web address]). OLAF BARRON MD Aug 05, 2024 07:11
[2024-08-05 07:16] LABS: Glucose 321 mg/dL (74-106); Sodium 133 mmol/L (136-145)
[2024-08-05 07:28] LABS: Urine Bacteria FEW /hpf (None Seen); Urine Blood TRACE /uL (Negative); Urine Clarity Clear (Clear); Urine Color Yellow (Yellow); Urine Protein, UAD TRACE (Negative); Urine Specific Gravity 1.039 (1.001-1.035); Urine Squamous Epithelial Cell MOD /hpf (<5); Urine Urobilinogen 12 mg/dL (Negative); Urine WBC 6 /HPF (0-5)
[2024-08-05 08:00] VITALS: PULSE 85; RESP 17
[2024-08-05] MEDS: ONDANSETRON HCL 4 MG/2 ML VIAL IV ONE (08:11)
[2024-08-05] MEDS: SODIUM CHLORIDE 0.9% 1,000 ML IV ONE (08:11)
[2024-08-05] MEDS: levoFLOXacin 500MG 100 ML IV ONE (08:11)
[2024-08-05] MEDS: MORPHINE SULFATE 4 MG/ML SYR/VIAL IV ONE (08:11)
[2024-08-05] MEDS: metroNIDAZOLE 500MG/100ML 100 ML IV ONE (08:52)
[2024-08-05] MEDS: HYDROcodone-ACET 5/325MG TAB PO ONE (10:34)
[2024-08-05] MEDS ORDERED: ACETAMINOPHEN 325 MG TAB PO PRN (13:15)
[2024-08-05] MEDS ORDERED: DEXTROSE (50%) 50ML SYRG IV PRN (13:15)
--- NOTE | 2024-08-05 13:33 | DVHHP2 ---
History of Present Illness Reason for Visit: Abdominal pain History of Present Illness Jennifer Coombs is a 49-year-old female with past medical history of hypertension, diabetes, and C-sections who presents to the ED with abdominal pain, nausea, and vomiting x4 days. Patient reports that the pain is 8/10 pressure-like and intermittent nature. She states that she was diagnosed 3 days ago with a UTI. Upon examination when palpating on her right upper quadrant grimacing and pain elicited. Patient reports that when she has emesis that he is yellow in color. Patient denies any chest pain, shortness of breath, fever, chills, lightheadedness, weakness, dizziness, diarrhea, recent trauma or injury, recent sick contacts, or ingestion of spoiled food. Cardiovascular: HTN Endocrine: Diabetes Past Surgical History: Family History: DM, Other (Mom with diabetes) Smoke: No ALCOHOL: none Drugs: None Lives: with Family Domestic Violence: Neg Review of Systems Gastrointestinal: Nausea, Vomiting, Abdominal Pain Allergies: Coded Allergies: Penicillins (Verified Allergy, Unknown, 08/31/22) Interview date: 08-31-2022 Per patient: - Developed hives when taking PCNs by mouth when she was a kid - Took Amoxicillin and Keflex in 2010 and well tolerated, no allergic reaction. Exam Vital Signs Vital Signs Date Time Temp Pulse Resp B/P (MAP) Pulse Ox O2 Delivery O2 Flow Rate FiO2 08/05/24 12:30 86 17 116/85 (95) 98 08/05/24 10:30 98.5 98.5 08/05/24 08:00 Room Air* 0 21 General Appearance: Alert, Oriented X3, Cooperative, No acute distress HEENT: Atraumatic, PERRLA, EOMI, Mucous membr. moist/pink Respiratory: Clear to auscultation, Normal air movement Cardiovascular: Regular rate, Normal S1, Normal S2, No murmurs Abdominal: Soft Extremities: No clubbing, No cyanosis, No edema, Normal pulses, No tenderness/swelling Skin: No significant lesion Neuro: Normal speech, Strength at 5/5 X4 ext, Normal tone, Sensation intact Psych/Mental Status: Mental status NL, Mood NL Labs/Xrays Labs Test 08/05/24 07:17 08/05/24 06:55 08/05/24 06:43 Range/Units Lactic Acid Level 1.7 0.4-2.0 mmol/L Urine Color Yellow Yellow Urine Clarity Clear Clear Urine pH 6.0 5.0-9.0 Urine Specific [place] 1.039 H 1.001-1.035 Urine Protein Trace H Negative Urine Ketones 4+ H Negative Urine Blood Trace H Negative /uL Urine Nitrite Negative Negative Urine Bilirubin Negative Negative Urine Urobilinogen 12 H Negative mg/dL Urine Leukocyte Esterase Negative Negative /uL Urine RBC 1 0 - 4 /hpf Urine Microscopic WBC 6 H 0-5 /HPF Urine Squamous Epithelial Cells Mod <5 /hpf Urine Bacteria Few H None Seen /hpf Urine Glucose 4+ H Normal mg/dL White Blood Count 12.5 #H 4.4-10.8 10^3/uL Red Blood Count 4.89 4.0-5.20 10^6/uL Hemoglobin 14.7 12.2-16.2 g/dL Hematocrit 42.8 36.0-46.0 % Mean Corpuscular Volume 87.6 80.0-100.0 fL Mean Corpuscular Hemoglobin 30.1 28.0-32.0 pg Mean Corpuscular Hemoglobin Concent 34.3 32.0-36.0 g/dL Red Cell Distribution Width 12.7 11.8-14.3 % Platelet Count 153 140-450 10^3/uL Mean Platelet Volume 10.0 6.9-10.8 fL Neutrophils (%) (Auto) 81.3 H 37.0-80.0 % Lymphocytes (%) (Auto) 9.0 L 10.0-50.0 % Monocytes (%) (Auto) 9.4 0.0-12.0 % Eosinophils (%) (Auto) 0.1 0.0-7.0 % Basophils (%) (Auto) 0.2 0.0-2.0 % Neutrophils # (Auto) 10.1 H 1.6-8.6 10 ^3/uL Lymphocytes # (Auto) 1.1 0.4-5.4 10 ^3/uL Monocytes # (Auto) 1.2 0-1.3 10 ^3/uL Eosinophils # (Auto) 0 0-0.8 10 ^3/uL Basophils # (Auto) 0 0-0.2 10 ^3/uL Nucleated Red Blood Cells 0.0 % Sodium Level 133 L 136-145 mmol/L Potassium Level 3.9 3.5-5.1 mmol/L Chloride Level 102 98-107 mmol/L Carbon Dioxide Level 20 20-31 mmol/L Anion Gap 11 5-15 Blood Urea Nitrogen 13 9-23 mg/dL Creatinine 0.97 0.550-1.02 mg/dL Glomerular Filtration Rate Calc 73 >90 mL/min BUN/Creatinine Ratio 13.4 10.0-20.0 Serum Glucose 321 H 74-106 mg/dL Calcium Level 9.4 8.7-10.4 mg/dL Indication: abd pain ro appendicitis Technique: CT axial images of the abdomen and pelvis are obtained without contrast. Coronal and sagittal reformats were obtained. Radiation Dose Information: CTDI volume is 12.55 mGy. Dose-length product is 700.29 mGy*cm Comparison: CT CT AB PEL WO CON-NO ORAL OR IV on DOS: 08/30/22 FINDINGS: There is limited interpretation of the abdomen and pelvis without administration of intravenous contrast. Lung bases demonstrate atelectasis. Tiny right pleural effusion. Adrenal glands straight right adrenal adenoma measuring 2.8 cm. Left adrenal gland unremarkable. Spleen, pancreas and liver unremarkable in shape. No CT evidence for cholelithiasis. No hydronephrosis/nephrolithiasis. Stomach is partially distended. There is extensive mesenteric lymphadenopathy with surrounding stranding lymph nodes measuring up to 1.4 cm. There is small bowel wall thickening with surrounding stranding / edema. Colonic diverticular disease. Moderate volume stool in the colon. Normal appendix. Enlarged uterus with suspected multiple leiomyomas measuring up to 6.4 cm. No free pelvic fluid. No inguinal lymphadenopathy. Mild thoracolumbar degenerative disc disease. IMPRESSION: 1. Small bowel wall thickening with surrounding stranding and associated mesenteric lymphadenopathy, likely secondary to enteritis / inflammatory bowel disease. Given the degree of lymphadenopathy, recommend continued follow-up to exclude any type of lymphoproliferative disorders/malignancy. 2. Enlarged uterus with suspected multiple leiomyomas up to 6.4 cm. 3. Tiny right pleural effusion. 4. Other [id number] as described. Assessment/Plan Assessment/Plan Assessment Intractable abdominal pain rule out appendicitis versus cholecystitis versus gastritis versus enteritis Leukocytosis likely due to gastritis versus enteritis Hyponatremia Glucosuria Diabetes type 2 uncontrolled Enlarged uterus with suspected multiple myeloma is up to 6.4 cm Right pleural effusion History of hypertension History of UTI History of C-sections Plan Admit to [facility] Antiemetics Pain management IV antibiotics-Flagyl +Levaquin NS 1 L given ED Urine bacterial culture Blood culture Hemoglobin A1c ISS and Accu-Cheks CT abdomen and pelvis Ultrasound abdomen ordered Duo nebs NPO for now IV fluids Home medications reconciled DVT prophylaxis-Lovenox PUD prophylaxis-Protonix, continue home medication Discussed plan of care with patient and nurse Plan discussed with: Patient My Orders Orders - JUAN DORSEY Procedure Category Date Status Time Ct Ab Pel Wo Con-No CT 08/05/24 Logged Oral Or Iv 13:13 Date of Service: Aug 05, 2024 Billing Provider: JUAN DORSEY Common Visit Codes: [id number] INP/OBS CARE (HIGH) JUAN DORSEY Aug 05, 2024 13:33
[2024-08-05] MEDS: SODIUM CHLORIDE 0.9% 1,000 ML IV SCH (13:44)
[2024-08-05] MEDS: MORPHINE SULFATE INJ 2 MG/ml SYRG IV PRN (13:46)
[2024-08-05] MEDS: ONDANSETRON HCL 4 MG/2 ML VIAL IV PRN (13:46)
[2024-08-05] MEDS: metroNIDAZOLE 500MG/100ML 100 ML IV SCH (14:06)
--- NOTE | 2024-08-05 14:20 | DVH ---
Indication: abd pain ro appendicitis Technique: CT axial images of the abdomen and pelvis are obtained without contrast. Coronal and sagit marisela reformats were obtained. Radiation Dose Information: CTDI volume is 12.55 mGy. Dose-length product is 700.29 mGy*cm Comparison: CT CT AB PEL WO CON-NO ORAL OR IV on DOS: 08/30/22 FINDINGS: There is limited interpretation of the abdomen and pelvis without administration of intravenous contr ast. Lung bases demonstrate atelectasis. Tiny right pleural effusion. Adrenal glands straight right adrenal adenoma measuring 2.8 cm. Left adrenal gland unremarkable. Sp cash, pancreas and liver unremarkable in shape. No CT evidence for cholelithiasis. No hydronephrosis/nephrolithiasis. Stomach is partially distended. There is extensive mesenteric lymphadenopathy with surrounding strand ing lymph nodes measuring up to 1.4 cm. There is small bowel wall thickening with surrounding strand ing / edema. Colonic diverticular disease. Moderate volume stool in the colon. Normal appendix. Enlarged uterus with suspected multiple leiomyomas measuring up to 6.4 cm. No free pelvic fluid. No inguinal lymphadenopathy. Mild thoracolumbar degenerative disc disease. IMPRESSION: 1. Small bowel wall thickening with surrounding stranding and associated mesenteric lymphadenopathy, likely secondary to enteritis / inflammatory bowel disease. Given the degree of lymphadenopathy, zara mmend continued follow-up to exclude any type of lymphoproliferative disorders/malignancy. 2. Enlarged uterus with suspected multiple leiomyomas up to 6.4 cm. 3. Tiny right pleural effusion. 4. Other [id number] as described.
[2024-08-05] MEDS ORDERED: IPRATROPIUM BROM 0.5 MG/2.5ML INH SOL NEB PRN (14:30)
[2024-08-05] MEDS ORDERED: ALBUTEROL SULF 2.5 MG/0.5ML(0.5%) NEB SOLN NEB PRN (14:30)
[2024-08-05 15:18] VITALS: PULSE 72; RESP 18; O2SAT 95
[2024-08-05 15:19] VITALS: BP 135/87; PULSE 77; RESP 14; TEMP 98; O2SAT 99
[2024-08-05 15:35] VITALS: BP 128/86; PULSE 78; RESP 16; O2SAT 98
--- NOTE | 2024-08-05 16:16 | DVH ---
INDICATION: ro jordy TECHNIQUE: Multiple real-time sonographic images of the gallbladder were obtained. COMPARISON: None FINDINGS: The liver is homogenous in echogenicity. The liver measures 17.1 cm. No intrahepatic bilia ry ductal dilatation is noted. The gallbladder wall measures 0.17 cm and is unremarkable. No gallstones but sludge was noted. The common duct measures 0.41 cm and is unremarkable. No pericholecystic fluid is noted. Negative sonogr aphic Shaffer's sign. The right kidney measures 10.7 cm. No hydronephrosis. The pancreas is not well visualized due to obscuration from bowel gas. The visualized portions of the IVC and aorta are grossly unremarkable. IMPRESSION: 1. Liver measures 17.1 cm. 2. Sludge is noted in the gallbladder however there is a negative sonographic shaffer's sign 3. Right kidney measures 10.7 cm and appears normal
--- NOTE | 2024-08-05 16:46 | DVH ---
STUDY: Transabdominal Pelvic Ultrasound. Indication: Leiomyomas COMPARISON: CT abdomen pelvis from today FINDINGS: The uterus measures 13.2 cm. Circumferential slightly hypoechoic lesion measuring 6.9 cm n ear the fundus that is intramural The endometrial stripe measures 3 mm. The right ovary is nonvisualized. The left ovary measures 3 x 1.5 x 2. cm . Left ovarian cyst measuring 1.1 cm. Arterial waveforms pre sent. No free fluid is seen within the pelvis. IMPRESSION: 1. Uterine leiomyomas up to 6.9 cm. 2. Right ovary nonvisualized.
[2024-08-05] MEDS: LISINOPRIL 20 MG TAB PO SCH (16:55)
[2024-08-05] MEDS: ACCU-CHEK COMFORT CURVE STRIP VI SCH (17:29)
[2024-08-05] MEDS: HYDROcodone-ACET 5/325MG TAB PO PRN (18:21)
[2024-08-05] MEDS: DICYCLOMINE HCL 10 MG CAP PO SCH (18:21)
[2024-08-05 18:53] VITALS: O2SAT 98
[2024-08-05] MEDS: InsuLIN REG 1unit/0.01ml Soln (100units/ml) SC SCH (18:54)
[2024-08-05 21:14] VITALS: BP 142/89; PULSE 81; RESP 20; TEMP 98.3; O2SAT 99
[2024-08-06] VITALS (8 sets, daily range): BP systolic 111–126; BP diastolic 75–80; PULSE 84–93; RESP 18–20; TEMP 98–98.3; O2SAT 95–99
[2024-08-06] MEDS: GABAPENTIN 300 MG CAP PO SCH (00:20)
[2024-08-06] MEDS: ATORVASTATIN 20 MG TAB PO SCH (00:20)
[2024-08-06 06:58] LABS: Basophils # (auto) 0 10 ^3/uL (0-0.2); Basophils % (auto) 0.2 % (0.0-2.0); Eosinophils # (auto) 0.1 10 ^3/uL (0-0.8); Eosinophils % (auto) 0.9 % (0.0-7.0); Hematocrit 38.5 % (36.0-46.0); Hemoglobin 13.3 g/dL (12.2-16.2); Lymphocytes # (auto) 1.5 10 ^3/uL (0.4-5.4); Lymphocytes % (auto) 18.7 % (10.0-50.0); Mean Corpuscular Hemoglobin 30.6 pg (28.0-32.0); Mean Corpuscular Hgb Conc. 34.6 g/dL (32.0-36.0); Mean Corpuscular Volume 88.4 fL (80.0-100.0); Monocytes # (auto) 0.9 10 ^3/uL (0-1.3); Monocytes % (auto) 11.2 % (0.0-12.0); Neutrophils # (auto) 5.7 10 ^3/uL (1.6-8.6); Platelet Count (auto) 171 10^3/uL (140-450); Red Blood Cells 4.35 10^6/uL (4.0-5.20); Red Cell Distribution Width 12.9 % (11.8-14.3); White Blood Cell 8.2 10^3/uL (4.4-10.8)
[2024-08-06 07:15] LABS: Alanine Aminotransferase 21 U/L (7-40); Albumin 3.7 g/dL (3.2-4.8); Alkaline Phosphatase 71 U/L (46-116); Anion Gap 9 (5-15); Aspartate Aminotransferase 16 U/L (13-40); BUN/Creatinine Ratio 11.4 (10.0-20.0); Calcium 9.1 mg/dL (8.7-10.4); Carbon Dioxide 22 mmol/L (20-31); Chloride 105 mmol/L (98-107); Potassium 3.6 mmol/L (3.5-5.1); Sodium 136 mmol/L (136-145); Total Protein 6.2 g/dL (5.7-8.2)
[2024-08-06 07:16] LABS: Bilirubin, Total 0.3 mg/dL (0.2-1.0); Blood Urea Nitrogen 8 mg/dL (9-23); Glucose 195 mg/dL (74-106)
[2024-08-06] MEDS: PANTOPRAZOLE 40 MG TAB PO SCH (10:26)
[2024-08-06] MEDS: ASCORBIC ACID 500 MG TAB PO SCH (10:26)
[2024-08-06] MEDS: ENOXAPARIN SOD 40 MG/0.4 ML SYRINGE SC SCH (10:27)
[2024-08-06] MEDS: ASPirin-EC 81 mg tab PO SCH (11:23)
[2024-08-06] MEDS: CHOLECALCIFEROL (VITD3) 1,000UNIT=25mCg TAB PO SCH (11:23)
[2024-08-06] MEDS: levoFLOXacin 500MG 100 ML IV SCH (11:27)
[2024-08-06] MEDS: amLODIPine BESYLATE 5 MG TAB PO SCH (11:27)
[2024-08-06] MEDS ORDERED: CIPROFLOXACIN 400MG/200ML 200 ML IV ONE (14:00)
--- NOTE | 2024-08-06 14:57 | DVHPNRES ---
Progress Note Date Seen: Aug 06, 2024 Resident Creating Document: THALIA HILL MARJORIE Has the PT tested + for MRSA If YES, has PT been informed?: No Medical Necessity Reason Pt with a Central, PICC or Fol: No Subjective Review of Systems This is a 49-year-old female with past medical history of hypertension, diabetes type 2 came to the hospital due to abdominal pain since 4 days. Pain localized at the epigastric area radiated to right upper quadrant, 8/10, pressure-like in nature, increased with taking food. Patient had came to the hospital due to same presentation 3 weeks back, and was recommended medical management, the patient pain has worsened. She also reports nausea, vomiting. She denies fever, shortness of breath, chest pain, or any recent bowel and bladder habit changes. PMHx: hypertension, diabetes type 2 PSHx: Family history: Significant for mother had diabetes type 2 and DVT Social history: Denies smoking or any drug use. Home medication: Gabapentin, amlodipine, lisinopril, insulin Lantus 15 units a.m. and 15 units p.m. Allergic history: Penicillin Patient seen and examined at the bedside. Patient is still complaining of abdominal pain. Patient reports: No new complaints, Feels better Changes from previous H/P or p: No Changes Objective vital signs Vital Sign Date Time Temp Pulse Resp B/P (MAP) Pulse Ox O2 Delivery O2 Flow Rate FiO2 08/06/24 11:27 133/78 08/06/24 05:50 98 Room Air* 0 21 08/06/24 05:00 98.3 84 20 98.3 Total Intake and Output 08/05/24 08/05/24 08/06/24 15:00 23:00 07:00 Intake Total 60 ml Balance 60 ml medications Current Medications Medications Dose Ordered Sig/Sandro Route Start Time Stop Time Status Last Admin Dose Admin Diagnostic Test (Pha) 1 strip Q6HR 08/05/24 18:00 08/06/24 12:51 1 STRIP Insulin Human Regular Q6HR SC 08/05/24 18:00 08/06/24 05:03 4 UNITS Dextrose 50 ml UD PRN IV 08/05/24 13:15 Metronidazole 100 ml @ 100 mls/hr Q8HR IV 08/05/24 14:00 08/06/24 13:01 100 MLS/HR Sodium Chloride 1,000 ml @ 60 mls/hr [id number] IV 08/05/24 13:15 08/05/24 13:44 60 MLS/HR Acetaminophen/ Hydrocodone Bitart 1 tab Q4HP PRN PO 08/05/24 13:15 08/05/24 18:21 1 TAB Ondansetron HCl 4 mg Q4HP PRN IV 08/05/24 13:15 08/05/24 21:55 4 MG Enoxaparin Sodium 40 mg DAILY SC 08/06/24 10:00 08/06/24 10:27 40 MG Acetaminophen 650 mg Q6HP PRN PO 08/05/24 13:15 Morphine Sulfate 2 mg Q4HPRN PRN IV 08/05/24 13:15 08/05/24 21:56 2 MG Amlodipine Besylate 5 mg DAILY PO 08/06/24 10:00 08/06/24 11:27 5 MG Aspirin 81 mg DAILY PO 08/06/24 10:00 08/06/24 11:23 81 MG Atorvastatin Calcium 20 mg HS PO 08/05/24 22:00 08/06/24 00:20 20 MG Dicyclomine HCl 10 mg Q6HPRN PO 08/05/24 18:00 08/06/24 12:57 10 MG Gabapentin 300 mg TID PO 08/05/24 22:00 08/06/24 12:57 300 MG Pantoprazole Sodium 40 mg DAILY PO 08/06/24 10:00 08/06/24 10:26 40 MG Ascorbic Acid 1,000 mg DAILY PO 08/06/24 10:00 08/06/24 10:26 1,000 MG Cholecalciferol 2,000 unit DAILY PO 08/06/24 10:00 08/06/24 11:23 2,000 UNIT Lisinopril 20 mg DAILY PO 08/05/24 15:37 08/06/24 11:24 20 MG Albuterol 2.5 mg Q4HPRN PRN NEB 08/05/24 14:30 Ipratropium [place] 0.5 mg Q4HPRN PRN NEB 08/05/24 14:30 Ciprofloxacin 200 ml @ 200 mls/hr Q12HR IV 08/06/24 22:00 Examination General Appearance: Alert, Oriented X3, Cooperative, No acute distress HEENT: Atraumatic, PERRLA, EOMI, Mucous membrane moist/pink Respiratory: Clear to auscultation, Normal air movement Cardiovascular: Regular rate, Normal S1, Normal S2, No murmurs, no chest wall tenderness Abdominal: Epigastric tenderness Extremities: No clubbing, No cyanosis, No edema, Normal pulses, No tenderness/swelling Skin: No rashes, No breakdown, No significant lesion Neuro: Normal gait, Normal speech, Strength at 5/5 X4 ext, Normal tone, Sensation intact, Cranial nerves 3-12 NL, Reflexes 2+ Psych/Mental Status: Mental status NL, Mood NL laboratory and microbiology Laboratory Tests 08/06/24 06:35 Test 08/06/24 06:35 Range/Units Serum Glucose 195 H 74-106 mg/dL Microbiology Date/Time Source Procedure Growth Status 08/05/24 07:17 Blood Blood Culture - Preliminary NO GROWTH AFTER 24 HOURS OF INCUBATION. Resulted 08/05/24 06:55 Voided Urine Urine Culture - Preliminary Resulted Labs and/or images reviewed: Labs reviewed by me, Image(s) reviewed by me Problem List/Assessment/Plan Problem List/Assessment/Plan Symptomatic cholelithiasis Possible gastroenteritis/enteritis SIRS positive with no end-organ damage Abdominal CT scan shows, small bowel wall thickening with surrounding stranding and associated mesenteric lymphadenopathy, likely secondary to enteritis / inflammatory bowel disease.clera Ultrasound shows sludge is noted in the gallbladder however there is a negative sonographic garrison's sign Consulted surgery Empiric antibiotic of Flagyl and Cipro IV fluid Pain management Diabetes type 2 with hyperglycemia Insulin Lantus 15 units b.i.d. Insulin regular according to mild SS Hypertension Continue amlodipine Continue lisinopril Asymptomatic bacteriuria Uterus leiomyoma Gynecology consulted DIET: Clear liquids DVT PROPHYLAXIS: Lovenox GI PROPHYLAXIS:: Protonix CODE STATUS: Goal of care discussed for more than 18 minutes, full code DISPOSITION: Med/surge Patient's status and plan discussed with the patient. Case discussed with Dr. Jama. Plan discussed with: Patient, Other (RN) My Orders My Orders Orders - THALIA HILL RESDIKRUNAL Procedure Category Date Status Time * Surgical Consult CONS 08/06/24 Transmitted Ciprofloxacin PHA 08/06/24 In Process 400mg/200ml (Cipro Iv) 22:00 Date of Service: Aug 06, 2024 Billing Provider: PHOEBE DAVID MD Common Visit Codes: [id number] INP/OBS CARE(HIGH) THALIA HILL Aug 06, 2024 14:57 PHOEBE DAVID MD Aug 09, 2024 00:51
[2024-08-06] MEDS: SODIUM CHLORIDE 0.9% 1,000 ML IV SCH (15:00)
[2024-08-06] MEDS ORDERED: DEXTROSE (50%) 50ML SYRG IV PRN (15:30)
[2024-08-06] MEDS: ACCU-CHEK COMFORT CURVE STRIP VI SCH (16:00)
[2024-08-06] MEDS: InsuLIN REG 1unit/0.01ml Soln (100units/ml) SC SCH (16:49)
[2024-08-06] MEDS: CIPROFLOXACIN 400MG/200ML 200 ML IV SCH (20:29)
[2024-08-07] VITALS (10 sets, daily range): BP systolic 93–156; BP diastolic 51–95; PULSE 76–97; RESP 17–19; TEMP 97.5–98.4; O2SAT 95–100
[2024-08-07] MEDS: INSULIN LANTUS (GLARGINE) 1 /0.01ml (100units/ml) SC SCH (07:00)
[2024-08-07 07:50] LABS: Basophils # (auto) 0 10 ^3/uL (0-0.2); Basophils % (auto) 0.3 % (0.0-2.0); Eosinophils # (auto) 0.1 10 ^3/uL (0-0.8); Eosinophils % (auto) 1.3 % (0.0-7.0); Hematocrit 35.4 % (36.0-46.0); Hemoglobin 12.4 g/dL (12.2-16.2); Lymphocytes # (auto) 1.8 10 ^3/uL (0.4-5.4); Lymphocytes % (auto) 26.4 % (10.0-50.0); Mean Corpuscular Hemoglobin 30.4 pg (28.0-32.0); Mean Corpuscular Hgb Conc. 35.1 g/dL (32.0-36.0); Mean Corpuscular Volume 86.8 fL (80.0-100.0); Monocytes # (auto) 0.8 10 ^3/uL (0-1.3); Monocytes % (auto) 11.4 % (0.0-12.0); Neutrophils # (auto) 4.1 10 ^3/uL (1.6-8.6); Neutrophils % (auto) 60.6 % (37.0-80.0); Nucleated Red Blood Cells % 0.1 %; Platelet Count (auto) 198 10^3/uL (140-450); Red Blood Cells 4.08 10^6/uL (4.0-5.20); Red Cell Distribution Width 13.1 % (11.8-14.3); White Blood Cell 6.7 10^3/uL (4.4-10.8)
[2024-08-07 08:11] LABS: Alanine Aminotransferase 15 U/L (7-40); Albumin 3.5 g/dL (3.2-4.8); Alkaline Phosphatase 73 U/L (46-116); Anion Gap 9 (5-15); Aspartate Aminotransferase 15 U/L (13-40); BUN/Creatinine Ratio 7.8 (10.0-20.0); Calcium 8.9 mg/dL (8.7-10.4); Carbon Dioxide 21 mmol/L (20-31); Potassium 3.7 mmol/L (3.5-5.1); Sodium 138 mmol/L (136-145)
[2024-08-07 08:13] LABS: Bilirubin, Total 0.2 mg/dL (0.2-1.0); Blood Urea Nitrogen 6 mg/dL (9-23); Chloride 108 mmol/L (98-107); Glucose 249 mg/dL (74-106); Total Protein 5.7 g/dL (5.7-8.2)
--- NOTE | 2024-08-07 09:21 | DVHINCON2 ---
Consultation - Surgical Date Seen: Aug 07, 2024 Referring Physician Referring Physician ER Reason for Consultation Abdominal pain History of Present Illness History of Present Illness This is a 49-year-old female with past medical history of hypertension, diabetes type 2 came to the hospital due to abdominal pain since 4 days. Pain localized at the epigastric area radiated to right upper quadrant, 8/10, pressure-like in nature, increased with taking food. Patient had came to the hospital due to same presentation 3 weeks back, and was recommended medical management, the patient pain has worsened. She also reports nausea, vomiting. She denies fever, shortness of breath, chest pain, or any recent bowel and bladder habit changes. Since admission patient has been able to tolerate Jell-O. Passing gas last bowel movement was last night. No fevers or chills. Pain is still in the epigastrium and right side 3/10 Past Medical/Surgical History Past Medical/Surgical History Hypertension diabetes Family and Social History Family and Social History Nonsmoker nondrinker Allergies and medications Allergies: Coded Allergies: Penicillins (Verified Allergy, Unknown, 08/31/22) Interview date: 08-31-2022 Per patient: - Developed hives when taking PCNs by mouth when she was a kid - Took Amoxicillin and Keflex in 2010 and well tolerated, no allergic reaction. Home Meds Active Scripts Dicyclomine Hcl (BENTYL CAPSULE) 10 Mg Cp, 1 CAP PO Q6HPRN, #20 CAP 0 Refills Prov:ANDRÉS IRENE PAC 08/03/24 Azithromycin (ZITHROMAX TABLET) 250 Mg Tb, 500 MG PO DAILY for 3 Days, #6 TAB Prov:KIMBERLYN RUDD RECORD PRODUCER 09/02/22 Pantoprazole Sodium Sesquihydr (Protonix) 40 Mg Tab, 40 MG PO DAILY for 30 Days, #30 TAB Prov:GRECIA GARCIA MD 12/05/19 Cholecalciferol (Vitamin D3 Super Strength) 2,000 Unit Cap, 2 TAB PO DAILY for 30 Days, #60 CAP Prov:GRECIA GARCIA MD 12/05/19 Ascorbic Acid (Gnp Vitamin C W/Netet Hips) 1,000 Mg Tab, 1000 MG PO DAILY for 10 Days, #10 TAB Prov:GRECIA GARCIA MD 12/05/19 Amlodipine Besylate (NORVASC TABLET) 5 Mg Tb, 5 MG PO DAILY for 30 Days, #30 TAB Prov:GRECIA GARCIA MD 12/05/19 Dexamethasone (Decadron) 4 Mg Tb, 6 MG PO DAILY for 10 Days, #10 TAB Prov:GRECIA GARCIA MD 12/05/19 Levofloxacin (Levaquin 750 mg) 750 Mg Tab, 1 TAB PO DAILY for 5 Days, #5 TAB 0 Refills Prov:GRECIA GARCIA MD 12/05/19 Reported Medications Gabapentin (Gabapentin) 300 Mg Cap, PO 08/30/22 Lisinopril (Lisinopril) 30 Mg Tab, 30 MG PO DAILY for 30 Days, MG 12/04/19 Review of systems Review of Systems: HEENT:Normal, CVS:Normal, RESPIRATORY:Normal, GI:Abnormal, :Normal, MSK:Normal, NEURO:Normal Examination Vital signs Vital Signs Date Time Temp Pulse Resp B/P (MAP) Pulse Ox O2 Delivery O2 Flow Rate FiO2 08/07/24 08:00 18 Room Air* 0 21 08/07/24 07:48 98 08/07/24 05:00 97.7 85 111/69 (83) 97.7 Medications Current Medications Medications (Trade) Dose Ordered Sig/Sandro Route PRN Reason Start Time Stop Time Status Last Admin Levofloxacin/ Dextrose 100 ml @ 100 mls/hr DAILY IV 08/06/24 10:00 08/06/24 13:49 DC 08/06/24 11:27 Enoxaparin Sodium (Lovenox) 40 mg DAILY SC 08/06/24 10:00 08/06/24 10:27 Amlodipine Besylate (Norvasc Tablet) 5 mg DAILY PO 08/06/24 10:00 08/06/24 11:27 Aspirin (Ecotrin Enteric Coated Tablet) 81 mg DAILY PO 08/06/24 10:00 08/06/24 15:17 DC 08/06/24 11:23 Pantoprazole Sodium (Protonix Tablet) 40 mg DAILY PO 08/06/24 10:00 08/06/24 10:26 Ascorbic Acid (Vitamin C Tablet) 1,000 mg DAILY PO 08/06/24 10:00 08/06/24 10:26 Cholecalciferol (Vitamin D3 Tablet) 2,000 unit DAILY PO 08/06/24 10:00 08/06/24 11:23 Ciprofloxacin 200 ml @ 200 mls/hr Q12HR IV 08/06/24 22:00 08/06/24 20:29 Sodium Chloride 1,000 ml @ 125 mls/hr Q8H IV 08/06/24 15:00 08/07/24 02:42 Diagnostic Test (Pha) (Accu-Chek Comfort Curve T) 1 strip IQ4HR 08/06/24 16:00 08/07/24 08:22 Insulin Human Regular (InsuLIN R) IQ4HR SC 08/06/24 16:00 08/07/24 04:53 Dextrose 50 ml UD PRN IV Blood Sugar LESS THAN 60 08/06/24 15:30 Insulin Glargine (Lantus) 10 units QAM [place] 08/07/24 07:00 Laboratory Labs Test 08/07/24 08:09 08/07/24 06:13 08/05/24 07:17 08/05/24 06:55 Range/Units POC Glucose 208 H 70-106 mg/dl White Blood Count 6.7 4.4-10.8 10^3/uL Red Blood Count 4.08 4.0-5.20 10^6/uL Hemoglobin 12.4 12.2-16.2 g/dL Hematocrit 35.4 L 36.0-46.0 % Mean Corpuscular Volume 86.8 80.0-100.0 fL Mean Corpuscular Hemoglobin 30.4 28.0-32.0 pg Mean Corpuscular Hemoglobin Concent 35.1 32.0-36.0 g/dL Red Cell Distribution Width 13.1 11.8-14.3 % Platelet Count 198 140-450 10^3/uL Mean Platelet Volume 9.5 6.9-10.8 fL Neutrophils (%) (Auto) 60.6 37.0-80.0 % Lymphocytes (%) (Auto) 26.4 10.0-50.0 % Monocytes (%) (Auto) 11.4 0.0-12.0 % Eosinophils (%) (Auto) 1.3 0.0-7.0 % Basophils (%) (Auto) 0.3 0.0-2.0 % Neutrophils # (Auto) 4.1 1.6-8.6 10 ^3/uL Lymphocytes # (Auto) 1.8 0.4-5.4 10 ^3/uL Monocytes # (Auto) 0.8 0-1.3 10 ^3/uL Eosinophils # (Auto) 0.1 0-0.8 10 ^3/uL Basophils # (Auto) 0 0-0.2 10 ^3/uL Nucleated Red Blood Cells 0.1 % Sodium Level 138 136-145 mmol/L Potassium Level 3.7 3.5-5.1 mmol/L Chloride Level 108 H 98-107 mmol/L Carbon Dioxide Level 21 20-31 mmol/L Anion Gap 9 5-15 Blood Urea Nitrogen 6 L 9-23 mg/dL Creatinine 0.77 0.550-1.02 mg/dL Glomerular Filtration Rate Calc 96 >90 mL/min BUN/Creatinine Ratio 7.8 L 10.0-20.0 Serum Glucose 249 H 74-106 mg/dL Calcium Level 8.9 8.7-10.4 mg/dL Total Bilirubin 0.2 0.2-1.0 mg/dL Aspartate Amino Transferase (AST) 15 13-40 U/L Alanine Aminotransferase (ALT) 15 7-40 U/L Alkaline Phosphatase 73 46-116 U/L Total Protein 5.7 5.7-8.2 g/dL Albumin 3.5 3.2-4.8 g/dL Lactic Acid Level 1.7 0.4-2.0 mmol/L Urine Color Yellow Yellow Urine Clarity Clear Clear Urine pH 6.0 5.0-9.0 Urine Specific [place] 1.039 H 1.001-1.035 Urine Protein Trace H Negative Urine Ketones 4+ H Negative Urine Blood Trace H Negative /uL Urine Nitrite Negative Negative Urine Bilirubin Negative Negative Urine Urobilinogen 12 H Negative mg/dL Urine Leukocyte Esterase Negative Negative /uL Urine RBC 1 0 - 4 /hpf Urine Microscopic WBC 6 H 0-5 /HPF Urine Squamous Epithelial Cells Mod <5 /hpf Urine Bacteria Few H None Seen /hpf Urine Glucose 4+ H Normal mg/dL Test 08/05/24 06:43 Range/Units Hemoglobin A1c 10.7 H <5.7 % A1C Microbiology Date/Time Source Procedure Growth Status 08/05/24 07:17 Blood Blood Culture - Preliminary NO GROWTH AFTER 48 HOURS OF INCUBATION. Resulted 08/05/24 06:55 Voided Urine Urine Culture - Preliminary Resulted Examination: GENERAL:Normal, HEENT:Normal, NECK:Normal, LUNGS:Normal, CVS:Normal, ABDOMEN:Abnormal (Mild tenderness in the epigastrium no rebound no guarding), SKIN:Normal, :Normal Problem List/Assessment/Plan Problems: (1) Sepsis Assessment and Plan 49-year-old female was the fact a history of abdominal pain. We will obtain a HIDA scan to rule out cholecystitis. Recommend GI evaluation for abdominal pain Plan discussed with Plan discussed with: Patient Visit Coding Surgery Date of Service if different f: Aug 07, 2024 Billing Provider: Lorenza Bangura Surgery Visit Codes: [id number] - INP CONSULT <80 MIN RIVERA WOODS Jr., MD Aug 07, 2024 09:21
--- NOTE | 2024-08-07 12:14 | DVHINCON2 ---
DATE OF CONSULTATION: 08/07/2024 REASON FOR CONSULTATION: Fibroid uterus. HISTORY OF PRESENT ILLNESS: The patient is a 49-year-old 3 para 2-1-0-3, admitted for abdominal pain, nausea, vomiting. The patient was noted to have UTI. Pelvic ultrasound revealed 13 weeks' size uterus with a 6.9 cm fibroid uterus. The patient denies having any abnormal bleeding. Her last Pap was in 2023. Mammogram was in 2024. PAST MEDICAL HISTORY: Diabetes, hypertension. PAST SURGICAL HISTORY: . SOCIAL HISTORY: None. FAMILY HISTORY: None. OBSTETRIC AND GYNECOLOGIC HISTORY: Stage 3 mammogram, recent Pap in 2023, section. PHYSICAL EXAMINATION: VITAL SIGNS: Stable. Afebrile. HEENT: Within normal limits. CARDIOVASCULAR: Regular rate and rhythm. LUNGS: Clear to auscultation. BREASTS: Symmetrical. No masses. ABDOMEN: Soft, nontender. PELVIC: External genitalia within normal limits. Vagina normal. Cervix grossly normal. Uterus: 13 weeks' size. Adnexa nonpalpable, nontender. IMPRESSION: Asymptomatic fibroid uterus. RECOMMENDATION: The patient to follow up outpatient. No intervention needed at this point. We will sign off. Thank you very much for this consultation. DO SANJAY Kitchen TID: [id number] RECEIPT: [id number]
--- NOTE | 2024-08-07 12:56 | DVH ---
Procedure: NM NM HIDA SCAN Exam Date: 08/07/2024 11:32 AM Clinical History: cholelithiasis Comparison Study: Ultrasound done 08/05/2024 Nuclear Medicine Hepatobiliary Scan. Technique: Following the intravenous administration of 6 mCi of technetium 99m labeled Choletec multiple planar abdominal planar images were obtained in anterior projection in 5 minute intervals for45 minutes . Ri ght lateral images were obtained at 45 minutes after injection. Findings: The liver appears grossly normal in size. There is no abnormal persistence of the cardiac or blood po ol activity. There is visualization of the gallbladder on the 23 minute delayed film and later films. There is visualization of the bowel as earliest [id number] minutes post-injection Impression: 1. Unremarkable hepatobiliary study without evidence of acute cholecystitis.
--- NOTE | 2024-08-07 14:10 | DVHCONRES ---
Date Seen: Aug 07, 2024 Resident Creating Document: DAVID HOOD RESIDENT Referring Physician Dr Rob resident Reason for Consultation Abdominal pain History of Present Illness KELSEA NEGRO is a 49-year-old female with a PMH of HTN, type 2 DM presented to the ED with the chief complaints of abdominal pain for 4 days. Pain localized at the epigastric area radiated to right upper quadrant, 8/10, pressure-like in nature, increased with taking food. Patient had came to the hospital due to same presentation 3 weeks back, and was recommended medical management, the patient pain has worsened. She also reports nausea, vomiting. She denies fever, shortness of breath, chest pain, or any recent bowel and bladder habit changes. Since admission patient has been able to tolerate Jell- O. Passing gas last bowel movement was last night. No fevers or chills. Pain is still in the epigastrium and right side 3/10. GI was consulted for abdominal pain. PMHx: hypertension, diabetes type 2 PSHx: Family history: Significant for mother had diabetes type 2 and DVT Social history: Denies smoking or any drug use. Home medication: Gabapentin, amlodipine, lisinopril, insulin Lantus 15 units a.m. and 15 units p.m. Allergic history: Penicillin Family History: Diabetes mellitus G8 MOTHER G8 FATHER Hypertension G8 MOTHER G8 FATHER Allergies: Coded Allergies: Penicillins (Verified Allergy, Unknown, 08/31/22) Interview date: 08-31-2022 Per patient: - Developed hives when taking PCNs by mouth when she was a kid - Took Amoxicillin and Keflex in 2010 and well tolerated, no allergic reaction. Home Meds Active Scripts Dicyclomine Hcl (BENTYL CAPSULE) 10 Mg Cp, 1 CAP PO Q6HPRN, #20 CAP 0 Refills Prov:ANDRÉS IRENE PAC 08/03/24 Azithromycin (ZITHROMAX TABLET) 250 Mg Tb, 500 MG PO DAILY for 3 Days, #6 TAB Prov:KIMBERLYN RUDD [employer] 09/02/22 Pantoprazole Sodium Sesquihydr (Protonix) 40 Mg Tab, 40 MG PO DAILY for 30 Days, #30 TAB Prov:GRECIA GARCIA MD 12/05/19 Cholecalciferol (Vitamin D3 Super Strength) 2,000 Unit Cap, 2 TAB PO DAILY for 30 Days, #60 CAP Prov:GRECIA GARCIA MD 12/05/19 Ascorbic Acid (Gnp Vitamin C W/Nette Hips) 1,000 Mg Tab, 1000 MG PO DAILY for 10 Days, #10 TAB Prov:GRECIA GARCIA MD 12/05/19 Amlodipine Besylate (NORVASC TABLET) 5 Mg Tb, 5 MG PO DAILY for 30 Days, #30 TAB Prov:GRECIA GARCIA MD 12/05/19 Dexamethasone (Decadron) 4 Mg Tb, 6 MG PO DAILY for 10 Days, #10 TAB Prov:GRECIA GARCIA MD 12/05/19 Levofloxacin (Levaquin 750 mg) 750 Mg Tab, 1 TAB PO DAILY for 5 Days, #5 TAB 0 Refills Prov:GRECIA GARCIA MD 12/05/19 Reported Medications Gabapentin (Gabapentin) 300 Mg Cap, PO 08/30/22 Lisinopril (Lisinopril) 30 Mg Tab, 30 MG PO DAILY for 30 Days, MG 12/04/19 Current Medications Current Medications Medications (Trade) Dose Ordered Sig/Sandro Route PRN Reason Start Time Stop Time Status Last Admin Ciprofloxacin 200 ml @ 200 mls/hr Q12HR IV 08/06/24 22:00 08/07/24 10:01 Sodium Chloride 1,000 ml @ 125 mls/hr Q8H IV 08/06/24 15:00 08/07/24 02:42 Diagnostic Test (Pha) (Accu-Chek Comfort Curve T) 1 strip IQ4HR 08/06/24 16:00 08/07/24 11:21 Insulin Human Regular (InsuLIN R) IQ4HR SC 08/06/24 16:00 08/07/24 04:53 Dextrose 50 ml UD PRN IV Blood Sugar LESS THAN 60 08/06/24 15:30 Insulin Glargine (Lantus) 10 units QAM SC 08/07/24 07:00 Review of Systems GI: Nausea, vomiting, abdominal pain, No other active complaints Vital Signs Vital Signs Date Time Temp Pulse Resp B/P (MAP) Pulse Ox O2 Delivery O2 Flow Rate FiO2 08/07/24 10:03 124/85 08/07/24 10:00 98 Room Air* 0 21 08/07/24 09:00 98.4 86 18 98.4 Physical Exam General Appearance: Alert, Oriented X3, Cooperative, No acute distress HEENT: Atraumatic, PERRLA, EOMI, Mucous membrane moist/pink Respiratory: Clear to auscultation, Normal air movement Cardiovascular: Regular rate, Normal S1, Normal S2, No murmurs, no chest wall tenderness Abdominal: Epigastric, RUQ tenderness, normal bowel sounds Extremities: No clubbing, No cyanosis, No edema, Normal pulses, No tenderness/swelling Skin: No rashes, No breakdown, No significant lesion Neuro: Normal gait, Normal speech, Strength at 5/5 X4 ext, Normal tone, Sensation intact, Cranial nerves 3-12 NL, Reflexes 2+ Psych/Mental Status: Mental status NL, Mood NL Labs/Diagnostic Data Labs Test 08/07/24 11:14 08/07/24 06:13 08/05/24 07:17 08/05/24 06:55 Range/Units POC Glucose 194 H 70-106 mg/dl White Blood Count 6.7 4.4-10.8 10^3/uL Red Blood Count 4.08 4.0-5.20 10^6/uL Hemoglobin 12.4 12.2-16.2 g/dL Hematocrit 35.4 L 36.0-46.0 % Mean Corpuscular Volume 86.8 80.0-100.0 fL Mean Corpuscular Hemoglobin 30.4 28.0-32.0 pg Mean Corpuscular Hemoglobin Concent 35.1 32.0-36.0 g/dL Red Cell Distribution Width 13.1 11.8-14.3 % Platelet Count 198 140-450 10^3/uL Mean Platelet Volume 9.5 6.9-10.8 fL Neutrophils (%) (Auto) 60.6 37.0-80.0 % Lymphocytes (%) (Auto) 26.4 10.0-50.0 % Monocytes (%) (Auto) 11.4 0.0-12.0 % Eosinophils (%) (Auto) 1.3 0.0-7.0 % Basophils (%) (Auto) 0.3 0.0-2.0 % Neutrophils # (Auto) 4.1 1.6-8.6 10 ^3/uL Lymphocytes # (Auto) 1.8 0.4-5.4 10 ^3/uL Monocytes # (Auto) 0.8 0-1.3 10 ^3/uL Eosinophils # (Auto) 0.1 0-0.8 10 ^3/uL Basophils # (Auto) 0 0-0.2 10 ^3/uL Nucleated Red Blood Cells 0.1 % Sodium Level 138 136-145 mmol/L Potassium Level 3.7 3.5-5.1 mmol/L Chloride Level 108 H 98-107 mmol/L Carbon Dioxide Level 21 20-31 mmol/L Anion Gap 9 5-15 Blood Urea Nitrogen 6 L 9-23 mg/dL Creatinine 0.77 0.550-1.02 mg/dL Glomerular Filtration Rate Calc 96 >90 mL/min BUN/Creatinine Ratio 7.8 L 10.0-20.0 Serum Glucose 249 H 74-106 mg/dL Calcium Level 8.9 8.7-10.4 mg/dL Total Bilirubin 0.2 0.2-1.0 mg/dL Aspartate Amino Transferase (AST) 15 13-40 U/L Alanine Aminotransferase (ALT) 15 7-40 U/L Alkaline Phosphatase 73 46-116 U/L Total Protein 5.7 5.7-8.2 g/dL Albumin 3.5 3.2-4.8 g/dL Lactic Acid Level 1.7 0.4-2.0 mmol/L Urine Color Yellow Yellow Urine Clarity Clear Clear Urine pH 6.0 5.0-9.0 Urine Specific [place] 1.039 H 1.001-1.035 Urine Protein Trace H Negative Urine Ketones 4+ H Negative Urine Blood Trace H Negative /uL Urine Nitrite Negative Negative Urine Bilirubin Negative Negative Urine Urobilinogen 12 H Negative mg/dL Urine Leukocyte Esterase Negative Negative /uL Urine RBC 1 0 - 4 /hpf Urine Microscopic WBC 6 H 0-5 /HPF Urine Squamous Epithelial Cells Mod <5 /hpf Urine Bacteria Few H None Seen /hpf Urine Glucose 4+ H Normal mg/dL Test 08/05/24 06:43 Range/Units Hemoglobin A1c 10.7 H <5.7 % A1C Microbiology Date/Time Source Procedure Growth Status 08/05/24 07:17 Blood Blood Culture - Preliminary NO GROWTH AFTER 48 HOURS OF INCUBATION. Resulted 08/05/24 06:55 Voided Urine Urine Culture - Final Complete Assessment # Intractable abdominal pain # ? Gastroparesis # Nausea and vomiting # Cholelithiasis # Possible gastroenteritis # Mesenteric lymphadenopathy # ? SIRS Plan/Recommendation - EGD tommorrow - colonoscopy as outpatient -small-bowel series x-ray - Abdominal CT scan shows, small bowel wall thickening with surrounding stranding and associated mesenteric lymphadenopathy, likely secondary to enteritis / inflammatory bowel disease.clera - Monitor lab - Protonix 40 PO - Zofran PRN - IV fluids NS - Bentyl for abdominal pain - Clear liquids - please avoid NSAIDs, alcohol, spicy, highly acidic and caustic diets. - refer oncology for lymphadenopathy on outpatient - repeat CT after 2 months to check with the lymphadenopathy still there or not - Rest of the management as per primary team Thank you so much for the opportunity to consult on your patient. GI team will follow the patient Case an action plan discussed with Dr. Karuna Bowens. Complex care planning needed total 49 minutes of detailed discussion. The patient and caregiver team agreed to the plan. Plan discussed with: Patient, Daughter DAVID HOOD RESIDENT Aug 07, 2024 14:10
--- NOTE | 2024-08-07 15:08 | DVHPNRES ---
Progress Note Date Seen: Aug 07, 2024 Resident Creating Document: THALIA HILL MARJORIE Has the PT tested + for MRSA If YES, has PT been informed?: No Medical Necessity Reason Pt with a Central, PICC or Fol: No Subjective Review of Systems Patient seen and examined at the bedside. Patient is feeling better since admission but still complaining of abdominal pain. Patient reports: No new complaints, Feels better Changes from previous H/P or p: Changes Objective vital signs Vital Sign Date Time Temp Pulse Resp B/P (MAP) Pulse Ox O2 Delivery O2 Flow Rate FiO2 08/07/24 10:03 124/85 08/07/24 10:00 98 Room Air* 0 21 08/07/24 09:00 98.4 86 18 98.4 Total Intake and Output 08/06/24 08/06/24 08/07/24 14:59 22:59 06:59 Intake Total 100 ml 1000 ml Balance 100 ml 1000 ml medications Current Medications Medications Dose Ordered Sig/Sandro Route Start Time Stop Time Status Last Admin Dose Admin Metronidazole 100 ml @ 100 mls/hr Q8HR IV 08/05/24 14:00 08/07/24 05:03 100 MLS/HR Acetaminophen/ Hydrocodone Bitart 1 tab Q4HP PRN PO 08/05/24 13:15 08/05/24 18:21 1 TAB Ondansetron HCl 4 mg Q4HP PRN IV 08/05/24 13:15 08/05/24 21:55 4 MG Enoxaparin Sodium 40 mg DAILY SC 08/06/24 10:00 08/07/24 10:01 40 MG Acetaminophen 650 mg Q6HP PRN PO 08/05/24 13:15 Morphine Sulfate 2 mg Q4HPRN PRN IV 08/05/24 13:15 08/05/24 21:56 2 MG Amlodipine Besylate 5 mg DAILY PO 08/06/24 10:00 08/06/24 11:27 5 MG Atorvastatin Calcium 20 mg HS PO 08/05/24 22:00 08/06/24 20:21 20 MG Dicyclomine HCl 10 mg Q6HPRN PO 08/05/24 18:00 08/07/24 13:14 10 MG Gabapentin 300 mg TID PO 08/05/24 22:00 08/06/24 20:21 300 MG Pantoprazole Sodium 40 mg DAILY PO 08/06/24 10:00 08/07/24 10:00 40 MG Ascorbic Acid 1,000 mg DAILY PO 08/06/24 10:00 08/07/24 10:00 1,000 MG Cholecalciferol 2,000 unit DAILY PO 08/06/24 10:00 08/07/24 10:00 2,000 UNIT Lisinopril 20 mg DAILY PO 08/05/24 15:37 08/07/24 10:03 20 MG Albuterol 2.5 mg Q4HPRN PRN NEB 08/05/24 14:30 Ipratropium [place] 0.5 mg Q4HPRN PRN NEB 08/05/24 14:30 Ciprofloxacin 200 ml @ 200 mls/hr Q12HR IV 08/06/24 22:00 08/07/24 10:01 200 MLS/HR Sodium Chloride 1,000 ml @ 125 mls/hr Q8H IV 08/06/24 15:00 08/07/24 02:42 125 MLS/HR Diagnostic Test (Pha) 1 strip IQ4HR 08/06/24 16:00 08/07/24 11:21 1 STRIP Insulin Human Regular IQ4HR SC 08/06/24 16:00 08/07/24 04:53 9 UNITS Dextrose 50 ml UD PRN IV 08/06/24 15:30 Insulin Glargine 10 units QAM SC 08/07/24 07:00 laboratory and microbiology Laboratory Tests 08/07/24 06:13 Test 08/07/24 06:13 Range/Units Serum Glucose 249 H 74-106 mg/dL Microbiology Date/Time Source Procedure Growth Status 08/05/24 07:17 Blood Blood Culture - Preliminary NO GROWTH AFTER 48 HOURS OF INCUBATION. Resulted 08/05/24 06:55 Voided Urine Urine Culture - Final Complete Labs and/or images reviewed: Labs reviewed by me, Image(s) reviewed by me Problem List/Assessment/Plan Problem List/Assessment/Plan Symptomatic cholelithiasis Possible gastroenteritis/enteritis SIRS positive with no end-organ damage Abdominal CT scan shows, small bowel wall thickening with surrounding stranding and associated mesenteric lymphadenopathy, likely secondary to enteritis / inflammatory bowel disease.clera Ultrasound shows sludge is noted in the gallbladder however there is a negative sonographic garrison's sign Consulted surgery, recommended HIDA scan GI consulted, recommended medical management Empiric antibiotic of Flagyl and Cipro IV fluid Pain management Diabetes type 2 with hyperglycemia Insulin Lantus 15 units b.i.d. Insulin regular according to mild SS Hypertension Continue amlodipine Continue lisinopril Asymptomatic bacteriuria Uterus leiomyoma Gynecology consulted, recommended outpatient basis follow up DIET: Clear liquids DVT PROPHYLAXIS: Lovenox GI PROPHYLAXIS:: Protonix CODE STATUS: Goal of care discussed for more than 18 minutes, full code DISPOSITION: Med/surge Patient's status and plan discussed with the patient. Case discussed with Dr. Jama. Plan discussed with: Patient, Other (RN) My Orders My Orders Orders - THALIA HILL RESDIENT Procedure Category Date Status Time Sodium Chloride 0.9% PHA 08/06/24 In Process 15:00 Glucose Blood PHA 08/06/24 In Process (Accu-Chek Comfort 16:00 Insulin R (Human) PHA 08/06/24 In Process (Insulin R) 16:00 Dextrose 50% Syringe PHA 08/06/24 In Process 15:30 Npo After Midnight ORDERS 08/06/24 Transmitted * Surgical Consult CONS 08/06/24 Transmitted 17:10 Insulin Lantus PHA 08/07/24 In Process (Glargine) (Lantus) 07:00 Drug Screen LAB 08/07/24 Logged 06:48 PTPTT LAB 08/08/24 Verified 04:00 * Gi Dvh Funnel Coater CONS 08/07/24 Transmitted 09:36 Date of Service: Aug 07, 2024 Billing Provider: PHOEBE DAVID MD Common Visit Codes: [id number] INP/OBS CARE(HIGH) THALIA HILL RESDIENT Aug 07, 2024 15:07 PHOEBE DAVID MD Aug 09, 2024 00:57
[2024-08-07] MEDS ORDERED: GASTROGRAFIN 120 ML SOL ONE (15:10)
[2024-08-07 17:30] LABS: Opiate Scree,Urine Neg (NEGATIVE); Phencyclidine Screen, Urine Neg (NEGATIVE)
[2024-08-07 17:31] LABS: Amphetamine Screen, Urine Neg (NEGATIVE); Barbiturate Scree,Urine Neg (NEGATIVE); Benzodiazephine Screen, Urine Neg (NEGATIVE); Cannabinoid Screen, Urine Neg (NEGATIVE); Cocaine Screen, Urine Neg (NEGATIVE)
--- NOTE | 2024-08-07 20:09 | DVH ---
Procedure: XY SMALL BOWEL SERIES-W BARIUM Reason for study/Clinical History: abnormal small bowel with lymphadenopathy Comparison Study: None available at time of dictation. Technique: Single contrast small bowel series performed. Findings: Rheumatology Nurse image demonstrates a large stool burden with small collections of gas in the proximal small bow el. After the introduction of 120 mL of Gastrografin at 15 minutes the contrast is in the 4th portion of the duodenum. At 30 minutes its proximal jejunum. At 45 minutes its in the terminal ileum. At 1 hour is in the cecum. At 2-1/2 hours is in the ascending colon and transverse colon and descending colon and at 3 hours is in the sigmoid colon. IMPRESSION: 1. No evidence for obstruction
[2024-08-07] MEDS: amLODIPine BESYLATE 5 MG TAB PO ONE (22:20)
[2024-08-08] VITALS (9 sets, daily range): BP systolic 101–165; BP diastolic 62–91; PULSE 76–91; RESP 14–25; TEMP 98.1–98.6; O2SAT 92–99
[2024-08-08 06:10] LABS: Basophils # (auto) 0 10 ^3/uL (0-0.2); Basophils % (auto) 0.4 % (0.0-2.0); Eosinophils # (auto) 0.1 10 ^3/uL (0-0.8); Eosinophils % (auto) 1.7 % (0.0-7.0); Hematocrit 34.5 % (36.0-46.0); Hemoglobin 11.9 g/dL (12.2-16.2); Lymphocytes # (auto) 1.5 10 ^3/uL (0.4-5.4); Lymphocytes % (auto) 20.2 % (10.0-50.0); Mean Corpuscular Hemoglobin 30.4 pg (28.0-32.0); Mean Corpuscular Hgb Conc. 34.4 g/dL (32.0-36.0); Mean Corpuscular Volume 88.5 fL (80.0-100.0); Monocytes # (auto) 0.7 10 ^3/uL (0-1.3); Monocytes % (auto) 9.5 % (0.0-12.0); Neutrophils # (auto) 5.1 10 ^3/uL (1.6-8.6); Neutrophils % (auto) 68.2 % (37.0-80.0); Nucleated Red Blood Cells % 0.1 %; Platelet Count (auto) 227 10^3/uL (140-450); Red Cell Distribution Width 12.7 % (11.8-14.3); White Blood Cell 7.5 10^3/uL (4.4-10.8)
[2024-08-08 06:26] LABS: INR 1.07 (0.9-1.15); Partial Thromboplastin Time 29.3 SEC (24.5-34.5); Prothrombin Time 11.3 sec (9.3-11.8)
[2024-08-08 06:28] LABS: Alanine Aminotransferase 16 U/L (7-40); Albumin 3.6 g/dL (3.2-4.8); Alkaline Phosphatase 61 U/L (46-116); Anion Gap 11 (5-15); Aspartate Aminotransferase 14 U/L (13-40); Calcium 9.1 mg/dL (8.7-10.4); Carbon Dioxide 22 mmol/L (20-31); Sodium 143 mmol/L (136-145); Total Protein 5.9 g/dL (5.7-8.2)
[2024-08-08 06:29] LABS: Bilirubin, Total 0.3 mg/dL (0.2-1.0); Blood Urea Nitrogen < 5 mg/dL (9-23); Chloride 110 mmol/L (98-107); Glucose 111 mg/dL (74-106); Potassium 3.2 mmol/L (3.5-5.1)
[2024-08-08] MEDS: POTASSIUM CHLORIDE 40 MEQ, LIDOCAINE 1% (LOCAL ANESTH.) 4 ML in SODIUM CHL 0.9% 250 ML IV ONE (08:40)
[2024-08-08] MEDS ORDERED: amLODIPine BESYLATE 5 MG TAB PO SCH (10:00)
[2024-08-08] MEDS ORDERED: SODIUM CHLORIDE LOCK 10 ML ONE (10:41)
[2024-08-08] MEDS ORDERED: LIDOCAINE VISCOUS 2% 15ML UD ONE (10:41)
[2024-08-08] MEDS: MIDAZOLAM HCL 5 MG/ML-1ML VIAL ONE (15:18)
[2024-08-08] MEDS: diphenhdrAMINE HCL 50 MG/1 ML VL ONE (15:18)
[2024-08-08] MEDS: fentaNYL CITRATE 100 MCG/2 ML VL ONE (15:18)
--- NOTE | 2024-08-08 15:31 | DVHOP2 ---
Operative Report DATE OF OPERATION: 08/08/24 PROCEDURE: Upper Endoscopy with biopsy. PREOPERATIVE INDICATION: The patient is a 49 -year-old female undergoing endoscopy for epigastric pain POSTOPERATIVE DIAGNOSES: 1. Minimal gastritis and mild duodenitis of the duodenal bulb PROCEDURE PERFORMED BY: Yolis Bowens GI NURSE: Jhoan SCOPE: Olympus videoendoscope. ASA CLASS: 2 PREOPERATIVE MEDICATIONS: Versed 5 mg, Fentanyl 100 mcg, Benadryl 50 mg I administered moderate sedation throughout this _15_ minutes procedure. An independent trained observer pushed medications at my direction, and monitored the patient's level of consciousness and physiological status throughout. PROCEDURE IN DETAIL: After obtaining an informed consent, the patient was placed on left lateral decubitus position. The patient was then sedated with the above medications. A bite block was placed between her teeth. The endoscope was then passed through the oropharynx, into the esophagus, and through the stomach and pylorus up to the second and third part of the duodenum. The endoscope was then withdrawn. The 2nd and 3rd part of the duodenal was normal. Duodenal bulb showed mild duodenitis with some hyperemia erythema The pre-pyloric area antrum and body showed minimal gastritis. Duodenal and gastric biopsies were obtained. On retroflexion the fundus cardia and angularis were normal. The endoscope was then withdrawn into the distal esophagus. Patient had a slightly irregular squamocolumnar junction with no significant hiatal hernia and no esophagitis The remaining distal and proximal esophagus and oropharynx were unremarkable The patient tolerated the procedure well without difficulty. COMPLICATIONS : None SPECIMENS: Duodenal biopsies Gastric biopsies DISPOSITION: Transfer back to the floor Stable PLAN: 1. Await for biopsy result 2. Will place pt on Protonix 40 mg p.o. daily 3. Carafate 1 g p.o. twice a day 4. Continue IV antibiotics for her enteritis and lymphadenopathy 5. Outpatient follow up with me in 4-6 weeks for ongoing GI management 6. Resume GI soft diet advance as tolerated YOLIS BOWENS MD Aug 08, 2024 15:31
[2024-08-08] MEDS ORDERED: CIPR-173 PO (16:29)
[2024-08-08] MEDS ORDERED: SUCR1SUS5 PO (16:29)
[2024-08-08] MEDS ORDERED: METR-344 PO (16:29)
--- NOTE | 2024-08-08 16:30 | DVHDSRES ---
Discharge Summary Date of Admission Resident Creating Document: SOTO ROB RESDIENT Aug 05, 2024 at 13:14 Date of Discharge: Aug 08, 2024 Admitting Diagnosis Intractable abdominal pain Labs/Diagnostic Data: Laboratory Results Test 08/08/24 12:25 08/08/24 05:33 08/07/24 17:00 08/05/24 07:17 POC Glucose 121 mg/dl (70-106) White Blood Count 7.5 10^3/uL (4.4-10.8) Red Blood Count 3.90 10^6/uL (4.0-5.20) Hemoglobin 11.9 g/dL (12.2-16.2) Hematocrit 34.5 % (36.0-46.0) Mean Corpuscular Volume 88.5 fL (80.0-100.0) Mean Corpuscular Hemoglobin 30.4 pg (28.0-32.0) Mean Corpuscular Hemoglobin Concent 34.4 g/dL (32.0-36.0) Red Cell Distribution Width 12.7 % (11.8-14.3) Platelet Count 227 10^3/uL (140-450) Mean Platelet Volume 8.9 fL (6.9-10.8) Neutrophils (%) (Auto) 68.2 % (37.0-80.0) Lymphocytes (%) (Auto) 20.2 % (10.0-50.0) Monocytes (%) (Auto) 9.5 % (0.0-12.0) Eosinophils (%) (Auto) 1.7 % (0.0-7.0) Basophils (%) (Auto) 0.4 % (0.0-2.0) Neutrophils # (Auto) 5.1 10 ^3/uL (1.6-8.6) Lymphocytes # (Auto) 1.5 10 ^3/uL (0.4-5.4) Monocytes # (Auto) 0.7 10 ^3/uL (0-1.3) Eosinophils # (Auto) 0.1 10 ^3/uL (0-0.8) Basophils # (Auto) 0 10 ^3/uL (0-0.2) Nucleated Red Blood Cells 0.1 % Prothrombin Time 11.3 sec (9.3-11.8) Prothrombin Time INR 1.07 (0.9-1.15) Activated Partial Thromboplast Time 29.3 SEC (24.5-34.5) Sodium Level 143 mmol/L (136-145) Potassium Level 3.2 mmol/L (3.5-5.1) Chloride Level 110 mmol/L (98-107) Carbon Dioxide Level 22 mmol/L (20-31) Anion Gap 11 (5-15) Blood Urea Nitrogen < 5 mg/dL (9-23) Creatinine 0.71 mg/dL (0.550-1.02) Glomerular Filtration Rate Calc 105 mL/min (>90) BUN/Creatinine Ratio 7.0 (10.0-20.0) Serum Glucose 111 mg/dL (74-106) Calcium Level 9.1 mg/dL (8.7-10.4) Magnesium Level 1.6 mg/dL (1.6-2.6) Total Bilirubin 0.3 mg/dL (0.2-1.0) Aspartate Amino Transferase (AST) 14 U/L (13-40) Alanine Aminotransferase (ALT) 16 U/L (7-40) Alkaline Phosphatase 61 U/L (46-116) Total Protein 5.9 g/dL (5.7-8.2) Albumin 3.6 g/dL (3.2-4.8) Beta HCG, Quantitative 0.3 mIU/mL (1.5-4.2) Urine Opiates Screen Neg (NEGATIVE) Urine Fentanyl Screen Neg (NEGATIVE) Urine Barbiturates Screen Neg (NEGATIVE) Urine Phencyclidine Screen Neg (NEGATIVE) Urine Amphetamines Screen Neg (NEGATIVE) Urine Benzodiazepines Screen Neg (NEGATIVE) Urine Cocaine Screen Neg (NEGATIVE) Urine Cannabinoids Screen Neg (NEGATIVE) Lactic Acid Level 1.7 mmol/L (0.4-2.0) Test 08/05/24 06:55 08/05/24 06:43 Urine Color Yellow (Yellow) Urine Clarity Clear (Clear) Urine pH 6.0 (5.0-9.0) Urine Specific [place] 1.039 (1.001-1.035) Urine Protein Trace (Negative) Urine Ketones 4+ (Negative) Urine Blood Trace /uL (Negative) Urine Nitrite Negative (Negative) Urine Bilirubin Negative (Negative) Urine Urobilinogen 12 mg/dL (Negative) Urine Leukocyte Esterase Negative /uL (Negative) Urine RBC 1 /hpf (0 - 4) Urine Microscopic WBC 6 /HPF (0-5) Urine Squamous Epithelial Cells Mod /hpf (<5) Urine Bacteria Few /hpf (None Seen) Urine Glucose 4+ mg/dL (Normal) Hemoglobin A1c 10.7 % A1C (<5.7) Other Laboratory Tests 08/08/24 05:33 Brief Hx & Hospital Course: This is a 49-year-old female with past medical history of hypertension, diabetes type 2 came to the hospital due to intractable abdominal pain since 4 days. Pain localized at the epigastric area radiated to right upper quadrant, 8/10, pressure-like in nature, increased with taking food. Patient had came to the hospital due to same presentation 3 days back, and was recommended medical management, but the patients pain has progressively worsened and prompted this visit. She also reports intractable nausea, vomiting and could not tolerate oral intake. She denies fever, shortness of breath, chest pain, or any recent bowel and bladder habit changes or any recent sick contact. PMHx: hypertension, diabetes type 2 PSHx: Family history: Significant for mother had diabetes type 2 and DVT Social history: Denies smoking or any drug use. Home medication: Gabapentin, amlodipine, lisinopril, insulin Lantus 15 units a.m. and 15 units p.m. Allergic history: Penicillin Hospital course: The patient was admitted due to intractable abdominal pain, intractable nausea and and vomiting for possible symptomatic gallbladder/cholelithiasis and enteritis/gastroenteritis. CT abdominopelvic showed small bowel wall thickening with surrounding stranding and associated mesenteric lymphadenopathy, likely secondary to enteritis/inflammatory bowel disease. Ultrasound showed sludge in the gallbladder. Patient was stopped given empiric antibiotic of Cipro, Flagyl, IV fluid, Protonix, Zofran, IV fluid and pain management. surgery consulted, recommended HIDA scan result showed normal finding, subsequently surgery recommended GI evaluation to rule out any other possible cause of abdominal pain before intervention management of symptomatic gallbladder sludge and outpatient surgery follow up. GI consulted, due to intractable nausea and vomiting which the patient could not tolerate oral intake, recommended to perform upper GI endoscopy and supportive managemen. EGD showed, gastritis and mild duodenitis of the duodenal bulb, biopsies were taken, and recommend GI follow up within 4-[address] scan also showed,Enlarged uterus with suspected multiple leiomyomas up to 6.4 cm, consulted Gynecology, recommended outpatient follow up. During hospital course electrolyte abnormalities including hypokalemia were repleted. On 08/09/2024, the patient was feeling better since admission, abdominal pain has decreased, and the patient we are able to tolerate oral intake. This discharge plan discussed with the patient the patient discharged home. Discharge plan: Protonix 40 mg daily for 2 weeks Carafate 1 g b.i.d. for twenty days Ciprofloxacin 500 mg b.i.d. for 7 days Flagyl 500 t.i.d. for 7 days Full liquid diet for 1 week and then resume regular diet Follow up with the PCP within 1 week of the discharge Follow up with the discharge Clinic within 1 week after discharge Follow up with the surgery on outpatient basis Follow up with the Gynecology on outpatient basis. Follow up with the GI within 4-6 with outpatient basis Continue home meds Consults/Reason for consult Surgery: Intractable abdominal pain and intractable nausea and vomiting, Symptomatic gallbladder sludge/cholelithiasis GI: Intractable abdominal pain and intractable nausea and vomiting, Symptomatic gallbladder sludge/cholelithiasis Gynecology: Enlarged uterus with leiomyoma Operations or Procedures [facility] Operative Report Patient Name: Kelsea Coombs Unit Number: [id number] Date of : 1975 Patient Status: Discharged Inpatient Attending Doctor: Soto Rob Operative Report Operative Report DATE OF OPERATION: 08/08/24 PROCEDURE: Upper Endoscopy with biopsy. PREOPERATIVE INDICATION: The patient is a 49 -year-old female undergoing endoscopy for epigastric pain POSTOPERATIVE DIAGNOSES: 1. Minimal gastritis and mild duodenitis of the duodenal bulb PROCEDURE PERFORMED BY: Yolis Sosa GI NURSE: Jhoan SCOPE: Olympus videoendoscope. ASA CLASS: 2 PREOPERATIVE MEDICATIONS: Versed 5 mg, Fentanyl 100 mcg, Benadryl 50 mg I administered moderate sedation throughout this _15_ minutes procedure. An independent trained observer pushed medications at my direction, and monitored the patient's level of consciousness and physiological status throughout. PROCEDURE IN DETAIL: After obtaining an informed consent, the patient was placed on left lateral decubitus position. The patient was then sedated with the above medications. A bite block was placed between her teeth. The endoscope was then passed through the oropharynx, into the esophagus, and through the stomach and pylorus up to the second and third part of the duodenum. The endoscope was then withdrawn. The 2nd and 3rd part of the duodenal was normal. Duodenal bulb showed mild duodenitis with some hyperemia erythema The pre-pyloric area antrum and body showed minimal gastritis. Duodenal and gastric biopsies were obtained. On retroflexion the fundus cardia and angularis were normal. The endoscope was then withdrawn into the distal esophagus. Patient had a slightly irregular squamocolumnar junction with no significant hiatal hernia and no esophagitis The remaining distal and proximal esophagus and oropharynx were unremarkable The patient tolerated the procedure well without difficulty. COMPLICATIONS : None SPECIMENS: Duodenal biopsies Gastric biopsies DISPOSITION: Transfer back to the floor Stable PLAN: 1. Await for biopsy result 2. Will place pt on Protonix 40 mg p.o. daily 3. Carafate 1 g p.o. twice a day 4. Continue IV antibiotics for her enteritis and lymphadenopathy 5. Outpatient follow up with me in 4-6 weeks for ongoing GI management 6. Resume GI soft diet advance as tolerated YOLIS SOSA MD [place] [id number] Ph: [phone] DIAGNOSTIC IMAGING Diagnostic Imaging Report : [id number] Signed PATIENT: KELSEA COOMBSCCT: [id number] UNIT: [id number] : 1975 LOC: CENTRAL ROOM / BED: [facility] / A AGE / SEX: 49 / F ADM STATUS: ADM IN SERVICE 0922 ORDERING PHYSICIAN: RIVERA WOODS Jr., MD PROCEDURE(s): [facility]M - NM HIDA SCAN REASON: cholelithiasis ORDER NUMBER(s): [id number], ACCESSION NUMBER(s): [id number] Procedure: NM NM HIDA SCAN Exam Date: 08/07/2024 11:32 AM Clinical History: cholelithiasis Comparison Study: Ultrasound done 08/05/2024 Nuclear Medicine Hepatobiliary Scan. Technique: Following the intravenous administration of 6 mCi of technetium 99m labeled Choletec multiple planar abdominal planar images were obtained in anterior projection in 5 minute intervals for45 minutes . Right lateral images were obtained at 45 minutes after injection. Findings: The liver appears grossly normal in size. There is no abnormal persistence of the cardiac or blood pool activity. There is visualization of the gallbladder on the 23 minute delayed film and later films. There is visualization of the bowel as earliest [address]30 minutes post-injection Impression: 1. Unremarkable hepatobiliary study without evidence of acute cholecystitis. ATED BY: NICOLASA CHENG MD DICTATED DATE/TIME: 08/07/24 1254 SIGNED BY: NICOLASA CHENG MD SIGNED DATE/TIME: 08/07/24 1254 CC: Aug 08, 2024 15:31 Condition at Discharge: Stable Final Diagnosis/Problems List Intractable abdominal pain, likely due to gallbladder sludge, gastroenteritis Intractable nausea and vomiting, likely due to gallbladder sludge/gastroenteritis Sepsis, likely due to enteritis Symptomatic cholelithiasis/gallbladder sludge Possible gastroenteritis/enteritis Mesenteric lymphadenopathy Possible gastroenteritis secondary to uncontrolled diabetes mellitus Uncontrolled Diabetes type 2 with hyperglycemia Ruled out DKA/HHS Hypertension Asymptomatic bacteriuria Uterus leiomyoma Hyponatremia Hypokalemia Right-sided pleural effusion Asymptomatic bacteriuria Ruled out UTI Discharge Disposition: Home Discharge Instruct/Medications Diet: Cardiac 2g Na,low cholest Diet comment: Full liquid diet for 1 week and then resume regular diet Activity: No Restrictions, As Tolerated Follow Up/Referral: Follow up with the PCP within 1 week of the discharge. Follow up with the GI within 4-6 weeks on outpatient basis. Follow up with the surgery on outpatient basis. Follow up with the Gynecology on outpatient basis Medications: Protonix 40 mg daily Carafate 1 g twice daily Tablet Cipro 500 mg b.i.d. for 7 days Tablet Flagyl 500 mg t.i.d. for 7 days Continue home meds Discharge Statement: "Patient was advised to return to the ER or call 911 if any headaches, dizziness, shortness of breath, chest pain, abdominal pain, bleeding, fevers, or worsening of medical condition. Patient was counseled about treatment plan, medications, possible side effects, patientverbalized understanding. All questions were answered to the best of my ability. This discharge took greater then 30 minutes in planning, reviewing documentation, counseling the patient, and discussing with other team members." ASSESSMENT ASSESSMENT Assessment Symptomatic cholelithiasis/gallbladder sludge Gastritis/duodenitis Enteritis SOTO ROB RESDIENT Aug 08, 2024 16:30
[2024-08-08] MEDS: PANTOPRAZOLE 40 MG/10 ML VIAL INJ IV ONE (16:56)
[2024-08-08] MEDS: ONDANSETRON HCL 4 MG/2 ML VIAL IV ONE (16:57)
[2024-08-08] MEDS: SUCRALFATE 1 GM/10 ML ORAL SUSP PO SCH (17:04)
== END 2024-08-08 18:31 | disposition home or self-care (01) | DRG 720 ==
LOC: ER 06:06 → OVERFLOW 13:14 → CENTRAL 13:28
PROVIDERS: ADMIT Student in an Organized Health Care Education/Training Program; ATTEND Student in an Organized Health Care Education/Training Program
PROC: 0DB68ZX Excision of Stomach, Via Natural or Artificial Opening Endoscopic, Diagnostic (ICD-10-PCS; 2024-08-08)
PROC: 0DB98ZX Excision of Duodenum, Via Natural or Artificial Opening Endoscopic, Diagnostic (ICD-10-PCS; principal; 2024-08-08 15:09)
DX: A41.9 Sepsis, unspecified organism (principal); J90 Pleural effusion, not elsewhere classified; E44.1 Mild protein-calorie malnutrition; E87.1 Hypo-osmolality and hyponatremia; D25.9 Leiomyoma of uterus, unspecified; K29.00 Acute gastritis without bleeding; R81 Glycosuria; K52.9 Noninfective gastroenteritis and colitis, unspecified; E11.65 Type 2 diabetes mellitus with hyperglycemia; I10 Essential (primary) hypertension; K29.80 Duodenitis without bleeding; E87.6 Hypokalemia; Z87.440 Personal history of urinary (tract) infections; Z98.891 History of uterine scar from previous surgery; Z83.3 Family history of diabetes mellitus; Z88.0 Allergy status to penicillin; Z79.899 Other long term (current) drug therapy; Z79.2 Long term (current) use of antibiotics; Z79.4 Long term (current) use of insulin; Z68.1 Body mass index [BMI] 19.9 or less, adult
CPT/HCPCS: 36415; 43239; 74176; 74250; 76705; 76856; 78226; 80048; 80053; 80307; 81001; 82962; 83036; 83605; 83735; 84702; 85025; 85610; 85730; 86850; 86900; 86901; 87040; 87081; 87086; 96365; 96367; 96375; G0378; J1815; J1956; J2003; J2250; J2405; J2470; J3490